=== PATIENT | male | born 1950 | race Hispanic/Latino ===

== ENCOUNTER 2020-01-28 15:42 | Inpatient (IN) | payer MEDICARE, OTHER ==
[~2020-01-28] VITALS: Ht 165.1 cm; Wt 81.6 kg
[2020-01-28] MEDS ORDERED: SODIUM CHLORIDE 0.9% 1000ML 1,000 ML IV STA (15:48)
[2020-01-28] MEDS ORDERED: PANTOPRAZOLE 40 MG 10ML VIAL IV STA (15:48)
[2020-01-28] MEDS ORDERED: SODIUM CHLORIDE 0.9% 1000ML 1,000 ML ONE (15:54)
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
[2020-01-28] MEDS ORDERED: SODIUM CHLORIDE 0.9% 1000ML 1,000 ML IV ONE (16:15)
[2020-01-28 16:20] LABS: BASOPHILS # (AUTO) 0.1 (0.0-0.1); BASOPHILS % 0.6 % (0.0-1.0); EOSINOPHILS # (AUTO) 0.1 (0.0-0.4); EOSINOPHILS % 0.7 % (0.0-6.0); HEMATOCRIT 46.4 % (38.2-49.6); HEMOGLOBIN 15.2 g/dL (14.0-18.0); LYMPHOCYTES # (AUTO) 1.1 (1.0-3.2); LYMPHOCYTES % 12.4 % (18.0-39.1); MEAN CORPUSCULAR HEMOGLOBIN 30.2 pg (28-32); MEAN CORPUSCULAR HGB CONC 32.8 g/dL (31-35); MEAN CORPUSCULAR VOLUME 92.2 fL (81-99); MONOCYTES # (AUTO) 0.7 (0.2-0.8); MONOCYTES % 8.3 % (4.4-11.3); NEUTROPHILS # (AUTO) 6.7 (2.1-6.9); NEUTROPHILS % 77.7 % (38.7-80.0); PLATELET COUNT 205 x10e3/uL (140-360); RED BLOOD COUNT 5.03 x10e6/uL (4.3-5.7)
[2020-01-28 16:23] LABS: INR 0.86; PARTIAL THROMBOPLASTIN TIME 25.8 seconds (23.8-35.5); PROTHROMBIN TIME 12.2 seconds (11.9-14.5)
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
[2020-01-28] MEDS ORDERED: SODIUM CHLORIDE 0.9% 1000ML 1,000 ML IV SCH (16:30)
[2020-01-28 16:32] LABS: ALBUMIN 3.8 g/dL (3.5-5.0); ALBUMIN/GLOBULIN RATIO 1.3 (0.8-2.0); ANION GAP 14.7 mmol/L (8-16); CALCIUM 12.4 mg/dL (8.4-10.2); CREATININE, SERUM 2.3 mg/dL (0.72-1.25); POTASSIUM 4.7 mmol/L (3.5-5.1)
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
[2020-01-28 16:38] LABS: CREATINE KINASE MB 5.9 ng/mL (0-5.0)
[2020-01-28 17:13] LABS: CLARITY,URINE CLOUDY (CLEAR); COLOR,URINE YELLOW (YELLOW); LEUKOCYTE ESTERASE ,URINE 1+ (NEGATIVE)
[2020-01-28 17:14] LABS: KETONES,URINE TRACE (NEGATIVE); NITRITE,URINE NEGATIVE (NEGATIVE); PROTEIN,URINE DIPSTICK 2+ (NEGATIVE); URINE UROBILINOGEN 1 mg/dL (0.2 - 1)
[2020-01-28 17:15] LABS: BACTERIA,URINE MANY /HPF; BILIRUBIN,URINE SMALL (NEGATIVE); MUCUS,URINE MODERATE (RARE); RBC,URINE 0-5 /HPF (0-5); WBC,URINE (MAN) >50 /HPF (0-5)
[2020-01-28 17:16] LABS: CALCIUM OXALATE CRYSTALS,UR FEW (FEW)
[2020-01-28] MEDS ORDERED: MEROPENEM 1GM 100 ML IV ONE (17:34)
[2020-01-28] MEDS ORDERED: ONDANSETRON HCL INJ 2MG/ML 2ML 2 MG/ML VIAL IV PRN (17:45)
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
[2020-01-28] MEDS ORDERED: MEROPENEM 1GM 100 ML IV SCH (18:00)
[2020-01-28] MEDS ORDERED: FINASTERIDE5 MG PO (18:11)
[2020-01-28] MEDS ORDERED: PAROXETINE HCL20 MG PO (18:11)
[2020-01-28] MEDS ORDERED: BENICAR40 MG PO (18:11)
[2020-01-28] MEDS ORDERED: METFORMIN HCL500 MG PO (18:11)
[2020-01-28] MEDS ORDERED: DOXAZOSIN MESYLA8 MG PO (18:11)
[2020-01-28] MEDS ORDERED: DEXTROSE 50% SYRINGE 50 ML IV PRN (18:15)
[2020-01-28] MEDS ORDERED: HYDRALAZINE HCL 20 MG/ML VIAL IV PRN (18:15)
[2020-01-28 19:15] VITALS: BP 111/60
--- NOTE | 2020-01-28 19:15 | NUR ---
patient received awake, alert, lying quietly in bed. no c/o pain noted. ivf infusing without difficulty. admit assessment/history obtained. jamar lujan placed within reach. patient instructed to call for assistance when needed.
[2020-01-28 20:43] VITALS: BP 111/60
[2020-01-28] MEDS: INSULIN LISPRO 100 UNIT/1 ML 3ML VIAL SQ SCH (21:00)
[2020-01-28] MEDS: FAMOTIDINE 20 MG/2 ML VIAL IV SCH (21:00)
[2020-01-28 21:20] VITALS: BP 111/60
[2020-01-28] MEDS: SODIUM CHLORIDE 0.9% 1000ML 1,000 ML IV SCH (22:55)
--- NOTE | 2020-01-28 22:56 | NUR ---
second cardiac markers collected and sent to lab at this time.
[2020-01-28 23:49] LABS: CREATINE KINASE MB 8.5 ng/mL (0-5.0)
[2020-01-29] VITALS (10 sets, daily range): BP systolic 114–169; BP diastolic 58–98
[2020-01-29 06:45] LABS: BASOPHILS # (AUTO) 0.1 (0.0-0.1); EOSINOPHILS # (AUTO) 0.3 (0.0-0.4); EOSINOPHILS % 4.3 % (0.0-6.0); HEMATOCRIT 43.9 % (38.2-49.6); HEMOGLOBIN 14.3 g/dL (14.0-18.0); MEAN CORPUSCULAR HGB CONC 32.6 g/dL (31-35); MONOCYTES # (AUTO) 0.6 (0.2-0.8); MONOCYTES % 9.5 % (4.4-11.3); NEUTROPHILS # (AUTO) 3.3 (2.1-6.9); PLATELET COUNT 161 x10e3/uL (140-360); RED BLOOD COUNT 4.62 x10e6/uL (4.3-5.7); RED CELL DISTRIBUTION WIDTH 13.9 % (11.7-14.4)
[2020-01-29 07:13] LABS: CREATINE KINASE MB 7.5 ng/mL (0-5.0)
[2020-01-29] MEDS: INSULIN LISPRO 100 UNIT/1 ML 3ML VIAL SQ SCH ×4 (07:30→19:42)
[2020-01-29 07:52] LABS: ALANINE AMINOTRANSFERASE 34 IU/L (0-55); ALBUMIN 3.1 g/dL (3.5-5.0); ALBUMIN/GLOBULIN RATIO 1.2 (0.8-2.0); ALKALINE PHOSPHATASE 100 IU/L (40-150); ANION GAP 11.5 mmol/L (8-16); BLOOD UREA NITROGEN 17 mg/dL (7-26); BUN/CREATININE RATIO 18 (6-25); CALCIUM 10.8 mg/dL (8.4-10.2); CARBON DIOXIDE 17 mmol/L (22-29); CHLORIDE 115 mmol/L (98-107); CHOLESTEROL 177 MD/DL (0-199); CREATININE, SERUM 0.94 mg/dL (0.72-1.25); EST GLOMERULAR FILTRATION RATE > 60 ML/MIN (60-); GLUCOSE 106 mg/dL (74-118); HDL CHOLESTEROL 44 MG/DL (40-60); LDL CHOLESTEROL 108 MG/DL (60-130); POTASSIUM 4.5 mmol/L (3.5-5.1); SODIUM 139 mmol/L (136-145); TRIGLYCERIDES 127 MG/DL (0-149)
[2020-01-29] MEDS: CEFTRIAXONE SOD 1 GM/NS 50 ML 50 ML IV SCH (08:44)
[2020-01-29] MEDS: FAMOTIDINE 20 MG/2 ML VIAL IV SCH ×2 (08:44→20:00)
[2020-01-29] MEDS: PAROXETINE HCL 20 MG TAB PO SCH (08:44)
[2020-01-29] MEDS: FINASTERIDE 5 MG TAB PO SCH (08:44)
[2020-01-29] MEDS: SODIUM CHLORIDE 0.9% 1000ML 1,000 ML IV SCH ×2 (08:54→20:00)
[2020-01-29] MEDS ORDERED: DOXAZOSIN MESYLATE PO SCH (09:00)
[2020-01-29] MEDS: DOXAZOSIN MESYLATE 2 MG TAB PO SCH (12:27)
[2020-01-29 15:03] LABS: CREATINE KINASE MB 6.5 ng/mL (0-5.0)
--- NOTE | 2020-01-29 19:40 | NUR ---
Received bedside report from day nurse. Patient in stable condition, no s/s of distress at this time. All safety measures in place. Will continue to monitor.
[2020-01-29] MEDS ORDERED: ONDANSETRON HCL 4 MG ORAL DISINTEGRATING TAB PO PRN (19:45)
--- NOTE | 2020-01-29 20:53 | Consultation ---
DATE OF CONSULTATION: PULMONARY CRITICAL CARE CONSULTATION CHIEF COMPLAINT: Dizziness and unsteady gait. HISTORY OF PRESENT ILLNESS: This patient is a 69-year-old man. He noted some dizziness and unsteadiness of gait. He also had some blurred vision. He denied any chest pain. He denied any nausea or vomiting. He did not have polyuria or diarrhea. When he came to the hospital, he had an elevated creatinine of 2.3 along with a calcium of 12.4 and carbon dioxide of 18. He also had white blood cells in his urine. He received intravenous fluids. He was started on antibiotics. He now feels better. He has some unsteadiness of gait. He had an echocardiogram as well as a carotid duplex and a CT scan of the head. PAST MEDICAL HISTORY: 1. Benign prostatic hypertrophy. 2. Type 2 diabetes. 3. Hypertension. PAST SURGICAL HISTORY: Cholecystectomy. SOCIAL HISTORY: Some history of tobacco use in the past. Occasional alcohol use. FAMILY HISTORY: Noncontributory. ALLERGIES: THE PATIENT IS ALLERGIC TO PENICILLIN. REVIEW OF SYSTEMS: He had unsteady gait and some dizziness. He did not complain of headache or fevers. He had no chest pain. There is no difficulty breathing. He denies any abdominal pain. He had no nausea or vomiting. He does have chronic back pain for which he was being treated by Dr. Oliver. He has no leg edema. PHYSICAL EXAMINATION: VITAL SIGNS: The patient is afebrile. The vital signs are stable. Saturation is 97%. HEENT: No facial swelling or erythema. CARDIAC: Regular rate and rhythm with normal S1 and S2. LUNGS: Auscultation of the lungs reveals clear breath sounds bilaterally. There is no wheezing. ABDOMEN: Soft, nontender. There is no rebound or guarding. EXTREMITIES: No leg edema. NEUROLOGICAL: No focal abnormalities. LABORATORY DATA: Creatinine was 2.3, but is now 0.94. Calcium was 12.4 and is now 10.8. Urinalysis shows greater than 50 white blood cells. RADIOGRAPHIC DATA: CT scan of the head shows no acute disease. Chest x-ray shows no acute abnormalities. IMPRESSION: 1. Acute kidney injury. 2. Dehydration. 3. Hypercalcemia. 4. Urinary tract infection. 5. Benign prostatic hypertrophy. PLAN: 1. Await official results of echocardiogram and carotid duplex. 2. PTH and vitamin D for hypercalcemia are pending. 3. Continue to monitor. 4. Continue antibiotics for urinary tract infection. MD JR Rodriguez/JEROME /[id number]
[2020-01-30] VITALS (7 sets, daily range): BP systolic 115–137; BP diastolic 54–67
[2020-01-30] MEDS: SODIUM CHLORIDE 0.9% 1000ML 1,000 ML IV SCH ×3 (05:06→17:47)
[2020-01-30 06:04] LABS: BASOPHILS % 0.7 % (0.0-1.0); EOSINOPHILS # (AUTO) 0.2 (0.0-0.4); EOSINOPHILS % 4.1 % (0.0-6.0); HEMATOCRIT 43.2 % (38.2-49.6); HEMOGLOBIN 14.8 g/dL (14.0-18.0); LYMPHOCYTES # (AUTO) 1.6 (1.0-3.2); LYMPHOCYTES % 30.4 % (18.0-39.1); MEAN CORPUSCULAR HEMOGLOBIN 32.1 pg (28-32); MEAN CORPUSCULAR HGB CONC 34.3 g/dL (31-35); MEAN CORPUSCULAR VOLUME 93.7 fL (81-99); MONOCYTES # (AUTO) 0.5 (0.2-0.8); MONOCYTES % 9.5 % (4.4-11.3); NEUTROPHILS % 54.9 % (38.7-80.0); PLATELET COUNT 160 x10e3/uL (140-360); RED BLOOD COUNT 4.61 x10e6/uL (4.3-5.7); RED CELL DISTRIBUTION WIDTH 13.6 % (11.7-14.4)
[2020-01-30 06:26] LABS: CALCIUM IONIZED 1.5 mmol/L (1.09-1.30)
[2020-01-30 06:53] LABS: ALANINE AMINOTRANSFERASE 34 IU/L (0-55); ALBUMIN 3.4 g/dL (3.5-5.0); ALBUMIN/GLOBULIN RATIO 1.4 (0.8-2.0); ALKALINE PHOSPHATASE 104 IU/L (40-150); ANION GAP 11.6 mmol/L (8-16); BLOOD UREA NITROGEN 14 mg/dL (7-26); BUN/CREATININE RATIO 18 (6-25); CALCIUM 10.5 mg/dL (8.4-10.2); CARBON DIOXIDE 19 mmol/L (22-29); CHLORIDE 110 mmol/L (98-107); CREATININE, SERUM 0.78 mg/dL (0.72-1.25); EST GLOMERULAR FILTRATION RATE > 60 ML/MIN (60-); GLUCOSE 104 mg/dL (74-118); POTASSIUM 4.6 mmol/L (3.5-5.1); SODIUM 136 mmol/L (136-145)
--- NOTE | 2020-01-30 06:55 | NUR ---
Received patient lying in bed with eyes open. Respiration even and unlabored without SOB. Call light in reach.
[2020-01-30] MEDS: INSULIN LISPRO 100 UNIT/1 ML 3ML VIAL SQ SCH ×4 (07:30→21:00)
[2020-01-30] MEDS: CEFTRIAXONE SOD 1 GM/NS 50 ML 50 ML IV SCH (08:11)
[2020-01-30] MEDS: FAMOTIDINE 20 MG/2 ML VIAL IV SCH ×2 (08:11→21:40)
[2020-01-30] MEDS: PAROXETINE HCL 20 MG TAB PO SCH (08:11)
[2020-01-30] MEDS: FINASTERIDE 5 MG TAB PO SCH (08:12)
[2020-01-30] MEDS: DOXAZOSIN MESYLATE 2 MG TAB PO SCH (08:16)
[2020-01-30] MEDS ORDERED: CEFDINIR300 MG PO (09:29)
[2020-01-30] MEDS ORDERED: LIPITOR20 MG PO (09:38)
--- NOTE | 2020-01-30 10:16 | NUR ---
OBS DAY 2. SENT TO R1 FOR LOC DETERMINATION
[2020-01-30] MEDS ORDERED: IOPAMIDOL 370 MG/ML 200 ML INFUS..BTL INJ ONE (10:33)
[2020-01-30] MEDS ORDERED: SODIUM CHLORIDE 0.9% 100 ML ONE (10:33)
--- NOTE | 2020-01-30 12:19 | Diagnostic Imaging Report ---
CTA NECK, CTA BRAIN HISTORY: Carotid stenosis COMPARISON: Head CT 01/28/2020 TECHNIQUE: CTA of the head and neck was performed with intravenous iodine based contrast. Coronal, sagittal, 3-D, and oblique maximum intensity projection reformations were created. One or more of the following dose reduction techniques were used: Automated exposure control, adjustment of the mA and/or kV according to patient size, and/or utilization of iterative reconstruction technique. DISCUSSION: If present, any cervical carotid stenosis will be measured as a percentage relative to the resighini artery distal to the stenosis (NASCET). CERVICAL CTA: Right Carotid: Moderate calcified plaque at the right carotid bulb causes greater than 70% focal stenosis of the proximal right internal carotid artery. Left Carotid: Mild calcified plaque at the left carotid bulb does not cause significant stenosis. Right vertebral artery: The right vertebral artery is occluded from its origin to the upper V2 segment. Underlying mild calcified plaques are seen in the occluded right vertebral artery V2 segment. There is reconstitution of the upper V2 segment at the C3 level. Moderate focal stenosis of the reconstituted upper V2 segment is due to additional focal calcified plaque. Left vertebral artery: Patent, no abnormalities. INTRACRANIAL CTA: Carotid arteries: Mild bilateral carotid siphon calcified plaque is present. Absent right A1 segment is within normal variation. No abnormalities in the left A1 or bilateral M1 segments. Vertebrobasilar Circulation: Right vertebral artery: Patent, no abnormalities. Left vertebral artery: Patent, no abnormalities. Basilar artery: Patent, no abnormalities. Posterior cerebral arteries: Patent, no abnormalities. Normal Variants: ACom: Patent. PComs: Patent bilaterally with hypoplastic right P1 segment. Vertebral arteries: Right dominant. The left vertebral artery terminates as the left posterior inferior cerebellar artery. Additional findings: There are mild to moderate degenerative changes throughout the spine. IMPRESSION: 1. 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 The right vertebral artery is reconstituted at the C3 level. Please note that the right vertebral artery is dominant. 2. Moderate focal stenosis in the reconstituted right vertebral artery upper V2 segment due to calcified plaque. 3. Greater than 70% focal stenosis in the proximal cervical right internal carotid artery due to calcified plaque. 4. Mild calcified plaque at the left carotid bulb does not cause significant stenosis. 5. Mild bilateral carotid siphon calcified plaque without significant stenosis. 6. No other cervical or intracranial CTA abnormalities. Signed by: Dr. Ed Hogue M.D. on 01/30/2020 12:15 PM
--- NOTE | 2020-01-30 13:21 | NUR ---
Discontinuing PT services since patient is Mod I in functional mobility. Thank you. Addendum: 01/30/20 at 1322 by Thang jung PT Amended: Links added.
--- NOTE | 2020-01-30 13:30 | NUR ---
spoke with Dr. Mckinney regarding the consultation. States he is going to see the patient.
--- NOTE | 2020-01-30 13:33 | NUR ---
Spoke with Dr. Couch regarding the consultation.
[2020-01-30] MEDS: ACETAMINOPHEN 325 MG TAB PO PRN (13:50)
[2020-01-30] MEDS ORDERED: FUROSEMIDE INJ 10 MG/ML 2 ML VIAL IV ONE (15:45)
--- NOTE | 2020-01-30 17:02 | Consultation ---
DATE OF CONSULTATION: Endocrine Consultation Patient of Dr. Smith and Dr. Mohan Oliver. Thank you very much for referring this patient. HISTORY OF PRESENT ILLNESS: This is a 69-year-old gentleman, who was referred to me for evaluation of hypercalcemia. The patient tells me that he has hypercalcemia for some time for almost a year or so, and is being followed by Dr. Mohan Oliver. He was given Sensipar, but he could not afford it. The reason for the hypercalcemia is not very clear. The patient came to the hospital with history of dizziness. He was found to have carotid stenosis. PAST MEDICAL HISTORY: Other medical problems include history of longstanding hypertension, hyperlipidemia, and diabetes mellitus. During the hospital stay. At the time of admission, his calcium levels were elevated at 12.4 with an ionized calcium around 1.5. His PTH level is around 35. The patient does not have a history of any kidney stones or any history of cancer. PHYSICAL EXAMINATION: GENERAL: Today, the patient is alert, awake, little bit apprehensive. He is moderately overweight. His heart rate is around 78, blood pressure 130/80 mmHg. HEENT: Essentially unremarkable. Thyroid is palpable. Clinically, he is near euthyroid. CHEST: Bilateral vesicular breathing. He has mild bronchospasm. CARDIAC: First and second heart sound. There is no 3rd or 4th heart sound. Ejection systolic murmur grade 2/6. ABDOMEN: The patient has evidence of a slightly distended abdomen. 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 CLINICAL IMPRESSION: Hypercalcemia, rule out cancer related hypercalcemia. Dizziness, carotid stenosis, urinary tract infection, diabetes mellitus type 2 with complications. PLAN: At this time, is to continue the IV normal saline and give him IV Lasix along with that. Time is upon we might consider Aredia if his creatinine levels stay okay. We will also do a PTH peptide and Alhaji angiotensin-converting enzyme. Thanks for referring this patient. I will be following this patient with you. MD LOUISE Hayes/JEROME /[id number]
[2020-01-31] VITALS (8 sets, daily range): BP systolic 122–170; BP diastolic 60–87
[2020-01-31] MEDS: SODIUM CHLORIDE 0.9% 1000ML 1,000 ML IV SCH ×2 (04:06→17:05)
--- NOTE | 2020-01-31 06:56 | NUR ---
Received bedside shift report from off going nurse. Patient is resting in bed, no s/s of distress noted at this time. Call light within reach. Bed in the lowest position.
[2020-01-31] MEDS: INSULIN LISPRO 100 UNIT/1 ML 3ML VIAL SQ SCH ×4 (07:30→21:00)
[2020-01-31] MEDS: FAMOTIDINE 20 MG/2 ML VIAL IV SCH ×2 (08:27→21:15)
[2020-01-31] MEDS: CEFTRIAXONE SOD 1 GM/NS 50 ML 50 ML IV SCH (08:27)
[2020-01-31] MEDS: FINASTERIDE 5 MG TAB PO SCH (08:28)
[2020-01-31] MEDS: DOXAZOSIN MESYLATE 2 MG TAB PO SCH (08:28)
[2020-01-31] MEDS: PAROXETINE HCL 20 MG TAB PO SCH (08:28)
[2020-01-31] MEDS ORDERED: FUROSEMIDE INJ 10 MG/ML 2 ML VIAL IV ONE (09:00)
--- NOTE | 2020-01-31 12:51 | Diagnostic Imaging Report ---
Examination: MRI BRAIN WO CONTRAST History: Dizziness. Dehydration. Strokelike symptoms. Comparison studies: Head CT performed January 28, 2020 Technique: Sagittal T2; axial DWI, FLAIR, GRE or SWI, T1, Coronal FLAIR. Intravenous contrast: None Findings: Scalp: No abnormal signal. No masses. Bone marrow: Normal in signal intensity. Brain volume: Adequate for age. No volume loss. Ventricles: Normal in size and configuration. No hydrocephalus. Extra-axial spaces: No abnormalities. Parenchyma: There are patchy and punctate areas of T2/FLAIR hyperintensity in the periventricular and subcortical white matter, nonspecific. No masses, hemorrhage, or acute vascular insults. Suprasellar and sellar region: No abnormalities. Craniocervical junction: No abnormalities. The foramen magnum is patent. No Chiari malformations. Vessels: Normal flow-voids in the arteries and sinuses. Additional findings:None. IMPRESSION: No acute intracranial abnormalities, specifically, no acute infarct. Chronic microvascular ischemic change. Signed by: Dr. Rosaline Galvan M.D. on 01/31/2020 12:48 PM
[2020-01-31] MEDS ORDERED: PAMIDRONATE DISODIUM 30 MG/VIAL IV ONE (13:45)
[2020-01-31] MEDS ORDERED: PAMIDRONATE DISODIUM 30 MG in SODIUM CHLORIDE 0.9% 500ML 500 ML IV ONE (15:00)
--- NOTE | 2020-01-31 19:18 | NUR ---
BEDSIDE SHIFT REPORT GIVEN TO ONCOMING NURSE. PATIENT IS RESTING IN BED, NO ACUTE DISTRESS NOTED. CALL LIGHT WITHIN REACH. BED IN THE LOWEST POSITION.
--- NOTE | 2020-01-31 20:27 | Consultation ---
DATE OF CONSULTATION: 01/31/2020 REASON FOR CONSULTATION: Carotid stenosis; requested by Dr. Russ Smith. CHIEF COMPLAINT: Dizziness. HISTORY OF PRESENT ILLNESS: I saw and evaluated this patient on January 31, 2020. He is a 69-year-old man, who was admitted with dizziness and unsteady gait. He has also had some episodes of blurred vision. On admission, his creatinine was elevated at 2.3 along with a calcium of 12.4 and carbon dioxide of 18. He has been followed by Dr. Mohan Oliver and prescribed the Sensipar. However, he could not afford the Sensipar and apparently has not been followed since then. The etiology of hypercalcemia was not very clear. On admission, the patient was dizzy. He said that he has had several episodes while mowing his lawn, where he became lightheaded. He did not have moody syncope. No unsteady gait and no history of TIA with extremity weakness or classic amaurosis fugax. However, he does describe lightheadedness, double vision, and scotoma, which resolved after he rests. He denies any history of coronary artery disease. No history of chest pain. Evaluations included a carotid ultrasound performed on 01/27, that is consistent with a right carotid stenosis of approximately 70%. Echocardiogram showed LVEF 50% to 60% with no evidence of valvular abnormality. LVEDD was 4.6 cm. There was RV enlargement and mild MR and TR. An MRI of the brain performed on 01/28/2020, did not show any intracranial abnormalities and no infarct. CTA of the neck and brain performed on 01/30/2020, was also read as showing a greater than 70% focal stenosis of the proximal right internal carotid artery. There was mild calcified plaque at the left carotid bulb. The right vertebral artery was occluded at its origin to the upper V2 segment. The left vertebral artery was patent without any abnormalities. The intracranial cerebral artery showed a mild bilateral carotid siphon plaque, but no other abnormalities. The right vertebral artery reconstitutes at the C3 level. The patient is currently being treated for the hypercalcemia with intravenous saline and Lasix by Dr. Couch of Endocrinology. PAST MEDICAL HISTORY: Positive for BPH, type 2 diabetes, and hypertension. PAST SURGICAL HISTORY: Positive for cholecystectomy. SOCIAL HISTORY: The patient is a long-time smoker and continues to smoke. He drinks alcohol occasionally. He is retired and lives at home. FAMILY HISTORY: Negative for early coronary artery disease or stroke history. ALLERGIES: PENICILLIN. MEDICATIONS: See MAR. REVIEW OF SYSTEMS: GENERAL: Positive for fatigue. NEUROLOGIC: Positive as above with unsteady gait and some dizziness. CARDIAC: Negative for chest pain or palpitations. PULMONARY: Negative for shortness of breath or wheezing. GI: No constipation or diarrhea. : Negative for hematuria or dysuria. ENDOCRINE: Positive as above with hypercalcemia. HEMATOLOGIC: Negative for clotting or bleeding. INFECTIOUS: Negative for fevers or sweating. PSYCHIATRIC: Negative for depression or anxiety. MUSCULOSKELETAL: Positive for joint pain. PHYSICAL EXAMINATION: GENERAL: Well-developed, well-nourished male, sitting up in bed. VITAL SIGNS: Blood pressure 130/70, pulse 80 and regular, respirations 16 and unlabored. NECK: Supple and nontender. No JVD. CARDIAC: Shows a regular rate and rhythm. Normal S1 and S2. There is no S3, S4, rub, or murmur. LUNGS: Clear to auscultation and percussion bilaterally. ABDOMEN: Globally benign. Good bowel sounds. No hepatosplenomegaly. BACK: No CVA tenderness. No muscle spasm. EXTREMITIES: No cyanosis, clubbing, or edema. VASCULAR: Carotids 2+/2+ bilaterally. I could not hear any carotid bruits. Radials and femorals 2+/2+ bilaterally. SKIN: No rashes or nonhealing ulcers. MUSCULOSKELETAL: Full range of motion at all joints. No joint swelling. NEUROLOGIC: Cranial nerves 2 through 12 intact. Sensation intact to light touch and pinprick bilaterally. IMAGING: As above. LABORATORIES: White count 5.39, hemoglobin 14.8, hematocrit 42.2, and platelet count 160,000. INR 0.86 with PT 12.2 and PTT 25.8. Chemistry; creatinine reportedly 2.3 on admission but is now 0.9. For some reason, chemistries on the computer are incomplete. The right carotid stenosis of 70% is imaged both by ultrasound and CTA of the neck. There is also a right vertebral occlusion. The left vertebral and left carotid system do not have significant lesions. IMPRESSION: Right carotid stenosis and the patient is being treated for hypercalcemia. We will discuss treatment options with his other physicians. Right carotid endarterectomy will be a reasonable option once his other medical problems are resolved. Thank you very much for asking me to see this nice man. MD LASHAY Soto/JEROME /[id number]
[2020-01-31] MEDS: ACETAMINOPHEN 325 MG TAB PO PRN (21:19)
--- NOTE | 2020-01-31 21:52 | Consultation ---
DATE OF CONSULTATION: 01/30/2020 HISTORY OF PRESENT ILLNESS: A 69-year-old male admitted with dizziness and kidney problems and hypercalcemia. The patient had a carotid Doppler, which showed some stenosis. He had a CTA of the neck and head, which shows occlusion of the right cervical vertebral artery with reconstitution more distally and 70% stenosis in the right carotid artery. The patient reports that his dizziness has resolved now. Consultation for stenosis evaluation, cardiovascular consultation has been placed. The patient is followed up also by Endocrinology for hypercalcemia and Pulmonary Service. At this time, the patient complains only of back pain and neck pain. No other symptoms. Neurologically, no weakness, no double vision, and no lateralized symptoms. PAST MEDICAL HISTORY: BPH, diabetes, hypertension. PAST SURGICAL HISTORY: Cholecystectomy. SOCIAL HISTORY: Old history of tobacco abuse. Occasional alcohol use. FAMILY HISTORY: Noncontributory. ALLERGIES: THE PATIENT IS ALLERGIC TO PENICILLIN. REVIEW OF SYSTEMS: His dizziness and gait problems resolved. No fever. No headache. No chest pain. No abdominal pain. Has chronic back pain. He has no nausea, no vomiting, and no edema. The rest of the 14-point review of systems is unremarkable. PHYSICAL EXAMINATION: VITAL SIGNS: Temperature 98, respiratory rate 16, pulse rate 80, blood pressure 121/67. HEAD AND NECK: No meningeal signs. ABDOMEN: Soft. CARDIOVASCULAR: Extremities, fair pulses. LUNGS: Good air entry bilaterally. No rales. EXTREMITIES: No edema. NEUROLOGIC: The patient is alert, oriented, follows commands. Normal speech. Cognitively normal. Motor, no lateralized weakness noted. No arm drift. Gait is normal except for difficulty with Romberg. He has decreased vibration, proprioception, pinprick distally. Deep tendon reflexes are 1. Plantars are flexor. Ersfns-[id number], [id number]-ui-[id number] are normal. ASSESSMENT: The patient with right vertebral occlusion and right carotid stenosis. Gross changes are chronic. His exam is unremarkable and it is not likely that he has an acute intracranial process. We will get an MRI of the brain to evaluate for potentially previous stroke, which would switch his current stenosis from asymptomatic to symptomatic if it is positive, which would probably affect the plan of care for the stenosis. At this point, we will await MRI results and make further decisions regarding the right carotid stenosis as well as the right vertebral, probably it is not surgical and it seems that he has reconstitution more distally. We will have to maintain him on antiplatelets, at this point would be aspirin and high-dose statins, Lipitor 80 mg daily unless his MRI shows any acute intracranial stroke. We will keep him on neuro checks. Physical, occupational, and speech therapy will be ordered. We will work him up for cardiovascular risk factors under control. Keep LDL less than 70 and his blood pressure has to be kept in the upper normal range, blood sugar in normal range. Treatment of his hypercalcemia and other medical issues and kidney problems per the other services. Jose Daniel Mckinney MD AM/JEROME /[id number]
[2020-02-01] VITALS (9 sets, daily range): BP systolic 125–154; BP diastolic 61–82
[2020-02-01] MEDS: SODIUM CHLORIDE 0.9% 1000ML 1,000 ML IV SCH ×2 (03:29→12:12)
[2020-02-01 06:12] LABS: BASOPHILS % 0.8 % (0.0-1.0); EOSINOPHILS # (AUTO) 0.2 (0.0-0.4); EOSINOPHILS % 4.5 % (0.0-6.0); HEMOGLOBIN 14.5 g/dL (14.0-18.0); LYMPHOCYTES # (AUTO) 1.2 (1.0-3.2); LYMPHOCYTES % 25.4 % (18.0-39.1); MEAN CORPUSCULAR HEMOGLOBIN 31.3 pg (28-32); MEAN CORPUSCULAR VOLUME 94.8 fL (81-99); MONOCYTES # (AUTO) 0.4 (0.2-0.8); MONOCYTES % 8.4 % (4.4-11.3); NEUTROPHILS % 60.5 % (38.7-80.0); PLATELET COUNT 175 x10e3/uL (140-360); RED BLOOD COUNT 4.64 x10e6/uL (4.3-5.7); RED CELL DISTRIBUTION WIDTH 13.4 % (11.7-14.4)
[2020-02-01 06:34] LABS: ANION GAP 8.2 mmol/L (8-16); BLOOD UREA NITROGEN 17 mg/dL (7-26); BUN/CREATININE RATIO 21 (6-25); CALCIUM 10.9 mg/dL (8.4-10.2); CARBON DIOXIDE 21 mmol/L (22-29); CHLORIDE 112 mmol/L (98-107); CREATININE, SERUM 0.81 mg/dL (0.72-1.25); EST GLOMERULAR FILTRATION RATE > 60 ML/MIN (60-); GLUCOSE 109 mg/dL (74-118); MAGNESIUM 1.5 MG/DL (1.3-2.1); PHOSPHORUS 2.2 MG/DL (2.3-4.7); POTASSIUM 4.2 mmol/L (3.5-5.1); SODIUM 137 mmol/L (136-145)
[2020-02-01] MEDS: INSULIN LISPRO 100 UNIT/1 ML 3ML VIAL SQ SCH ×4 (07:30→21:00)
[2020-02-01] MEDS: FAMOTIDINE 20 MG/2 ML VIAL IV SCH ×2 (09:00→21:25)
[2020-02-01] MEDS: CEFTRIAXONE SOD 1 GM/NS 50 ML 50 ML IV SCH (09:00)
[2020-02-01] MEDS ORDERED: FUROSEMIDE INJ 10 MG/ML 2 ML VIAL IV ONE (09:00)
[2020-02-01] MEDS: DOXAZOSIN MESYLATE 2 MG TAB PO SCH (09:01)
[2020-02-01] MEDS: FINASTERIDE 5 MG TAB PO SCH (09:01)
[2020-02-01] MEDS: PAROXETINE HCL 20 MG TAB PO SCH (09:01)
[2020-02-01] MEDS ORDERED: MAGNESIUM SULFATE 2GM/50ML 50 ML IV ONE (09:45)
[2020-02-01] MEDS: ACETAMINOPHEN 325 MG TAB PO PRN (10:47)
[2020-02-01] MEDS ORDERED: ACETAMINOPHEN/CODEINE 300MG - 30MG TAB PO PRN (15:15)
[2020-02-01] MEDS ORDERED: TRAMADOL HCL 50 MG TAB PO PRN (15:15)
[2020-02-01] MEDS ORDERED: HYDROCODONE/APAP 7.5MG-325MG 1 EA TAB PO PRN (15:15)
--- NOTE | 2020-02-01 15:26 | Progress Note ---
DATE: 02/01/2020 REASON FOR EVALUATION: Right carotid stenosis. REFERRING PHYSICIAN: Ash Smith MD SUBJECTIVE: A 69-year-old man with right carotid stenosis being treated for hypercalcemia. Evaluation by Neurology underway. MRI of the brain has been recommended. REVIEW OF SYSTEMS: GENERAL: Negative for fatigue. CARDIAC: Negative for chest pain. NEUROLOGIC: Negative for repeat episodes of dizziness. GI: Negative for GI distress and diarrhea. PULMONARY: Negative shortness of breath. PHYSICAL EXAMINATION: GENERAL: Well-developed, well-nourished man sitting up in bed. VITAL SIGNS: Blood pressure 130/75. Pulse 80 and regular, respirations 16 and unlabored. NECK: Supple, nontender. No JVD. CARDIAC: Regular rate and rhythm. Normal S1, S2. No S3, S4, rub, or murmurs. LUNGS: Clear to auscultation and percussion bilaterally. ABDOMEN: Globoid and benign. Good bowel sounds. LABORATORIES: White count 4.8, hemoglobin 14.8, hematocrit 44.0, platelet count 175,000. Sodium 137, potassium 4.2, BUN 17, creatinine 0.8. IMPRESSION: 70% right carotid stenosis. Undergoing treatment for hypercalcemia. Decision about right carotid surgery pending MRI. MD FRANCISCO JAVIER SotoL/MODL /[id number]
--- NOTE | 2020-02-01 18:55 | NUR ---
Bedside nursing shift report with morning nurse. Pt alert and orient, lying in bed HOB 30 degrees. Denies pain at this time. Call light within reach. Bed low and locked.
--- NOTE | 2020-02-01 19:29 | NUR ---
Report given to oncoming nurse of patient's status. Resting in bed. No s/s of acute distress noted. Side rails upx2, call light within reach.
--- NOTE | 2020-02-01 19:47 | Consultation ---
DATE OF CONSULTATION: 01/31/2020 HISTORY OF PRESENT ILLNESS: The patient with no dizziness, no lateralized weakness, no focal neurologic deficits. He complains of back pain. MRI brain does not show any acute changes. The patient is being evaluated by Vascular surgery and elective right CEA for asymptomatic stenosis is anticipated if clinically stable. MEDICATIONS: Per medication list. The patient was started on Lipitor as well as Plavix. REVIEW OF SYSTEMS: As above. PHYSICAL EXAMINATION: VITAL SIGNS: The patient's temperature is 98, respiratory rate 16, pulse rate 80, blood pressure 121/60. HEAD AND NECK: No meningeal signs. LUNGS: Fair air entry. ABDOMEN: Soft. NEUROLOGIC: Alert, follows commands. Normal language fund of knowledge. Sensation normal. Facial exam, uvula midline. Gag postive. Tongue midline. Shoulder shrug is normal. Motor is 5/5 in all extremities. Yxygfo-nx-wrkf exam is normal. Sensory normal to all modalities. Deep tendon reflexes are 2. Plantars are flexor. ASSESSMENT: 1. Asymptomatic right carotid stenosis at 70%. 2. Chronic occlusion of the right vertebral artery with reconstitution more distally. 3. Hypertension. 4. Hyperlipidemia. 5. Hypercalcemia. RECOMMENDATIONS: The patient will probably benefit from a right CEA on an elective basis. In the mean time we will keep him on antiplatelets as well as statins. Control cardiovascular risk factors. The right vertebral findings are nonsurgical. His dizziness is resolved at this time. His right CEA is to be scheduled and the finding would be determined based on his other medical issues. Jose Daniel Mckinney MD AM/JEROME /[id number]
--- NOTE | 2020-02-01 19:55 | NUR ---
Spoke with Dr. Bolton regrading plans for patient, stated he will come by tomorrow to talk to patient about elective surgery.
[2020-02-01] MEDS ORDERED: ATORVASTATIN 40 MG TAB PO SCH (21:00)
[2020-02-02] VITALS: BP 146/71
[2020-02-02] MEDS: ACETAMINOPHEN 325 MG TAB PO PRN ×2 (00:33→14:30)
[2020-02-02] MEDS: SODIUM CHLORIDE 0.9% 1000ML 1,000 ML IV SCH ×3 (00:33→16:25)
[2020-02-02 04:00] VITALS: BP 126/63
--- NOTE | 2020-02-02 06:50 | NUR ---
Report given to morning nurse, Pt resting in bed. No s/s of acute distress noted. Call light within reach.
[2020-02-02] MEDS: INSULIN LISPRO 100 UNIT/1 ML 3ML VIAL SQ SCH ×3 (07:30→16:24)
[2020-02-02 07:37] VITALS: BP 119/57
[2020-02-02 07:38] VITALS: BP 119/57
[2020-02-02] MEDS ORDERED: CLOPIDOGREL BISULFATE 75 MG TAB PO SCH (09:00)
[2020-02-02] MEDS: PAROXETINE HCL 20 MG TAB PO SCH (11:00)
[2020-02-02] MEDS: DOXAZOSIN MESYLATE 2 MG TAB PO SCH (11:00)
[2020-02-02] MEDS: FAMOTIDINE 20 MG/2 ML VIAL IV SCH (11:00)
[2020-02-02] MEDS: FINASTERIDE 5 MG TAB PO SCH (11:00)
[2020-02-02] MEDS: CEFTRIAXONE SOD 1 GM/NS 50 ML 50 ML IV SCH (11:00)
[2020-02-02 11:29] VITALS: BP 155/92
[2020-02-02 15:25] VITALS: BP 143/56
[2020-02-02] MEDS ORDERED: FUROSEMIDE INJ 10 MG/ML 2 ML VIAL IV ONE (16:15)
--- NOTE | 2020-02-02 18:06 | Progress Note ---
DATE: 02/01/2020 SUBJECTIVE: The patient is same, no dizziness, no other neurologic symptoms. MEDICATIONS: Per list. He is now on Plavix and Lipitor among other medications. PHYSICAL EXAMINATION: Essentially unchanged with no lateralizing weakness or symptoms. ASSESSMENT: 1. Asymptomatic right carotid stenosis at 70%. 2. Chronic right vertebral artery occlusion. 3. Hypertension. 4. Hyperlipidemia. 5. Hypercalcemia. RECOMMENDATIONS: Elective right CEA to be scheduled I think after medical issues resolution including hypercalcemia. We will continue in the meantime with antiplatelets and statins. Jose Daniel Mckinney MD AM/MODZeny /[id number]
--- NOTE | 2020-02-02 19:00 | NUR ---
Bedside nursing shift report completed with morning nurse. Pt alert and oriented to name. Doctors at bedside. Pt denies pain at this time. Call light within reach. Call light within reach. Bed low and locked.
[2020-02-02] MEDS ORDERED: CEFUROXIME250 MG PO (19:35)
--- NOTE | 2020-02-02 20:30 | NUR ---
Pt D/C'd via WC to private car, at his side. D?C'd instructions given, patient verbalized understanding. No acute distress noted. IV removed 18g right AC, patient tolerated well. Patient left with all belonging. No additional questions noted.
--- NOTE | 2020-02-03 01:38 | Progress Note ---
DATE: 02/02/2020 REASON FOR PROGRESS NOTE: Right carotid stenosis; referred by Dr. Russ Smith. SUBJECTIVE: The patient is sitting up in bed and feeling well. Hypercalcemia is now controlled. Plan is for discharge today. REVIEW OF SYSTEMS: GENERAL: Negative for fatigue. CARDIAC: Negative for chest pain. PULMONARY: Negative for shortness of breath. GI: No constipation or diarrhea. : Negative for hematuria or dysuria. NEUROLOGIC: Negative for focal weakness in the extremities. PHYSICAL EXAMINATION: GENERAL: The patient is sitting up in bed and feeling well. VITAL SIGNS: Blood pressure 130/70, pulse 75 and regular, respirations 16 and unlabored. NECK: Supple and nontender. No JVD. CARDIAC: Shows a regular rate and rhythm. Normal S1, S2. No S3 or S4. LUNGS: Clear to auscultation and percussion bilaterally. ABDOMEN: Globoid and benign. Good bowel sounds. EXTREMITIES: No cyanosis, clubbing, or edema. LABORATORY: Unable to see calcium levels on the EMR today. White count 4.8, hemoglobin 14.5, hematocrit 44.0, platelet count 175,000. IMPRESSION AND PLAN: Right carotid stenosis. Neurology has recommended elective right carotid endarterectomy. I have discussed the hypercalcemia with Dr. Couch. He feels that calcium is officially controlled for right carotid and a short for elective right carotid endarterectomy. I described the operation to the patient as well as to his son. We called the son by phone and he was on the speaker phone. I described the operation to the patient and son. I told them both that the risks of surgery include , bleeding, infection, heart attack, stroke, pneumonia, prolonged ICU stay, mechanical ventilation, tracheostomy, renal failure, etc. I told them that without surgery, the risk of a stroke with a 70-80% stenosis of the right carotid as well as an occluded right vertebral would likely be on the order of 3-4% per year and that this might be a major or lethal stroke. I told them that with surgery, the risk of stroke would fall to approximately 1/2 to 1% per year, but that this might also be a major or lethal stroke. I told them that the perioperative risk of a major or lethal stroke would be on the order of 3-4%. I further told them that the operation would not initially be expected to improve neurologic status and that the only reason to proceed with surgery was to lessen the risk of stroke over the long-term. The patient and his son stated that they understood, no further question, and wanted to proceed. Surgery will be scheduled. MD LASHAY Soto/MODL /[id number]
--- NOTE | 2020-02-03 04:13 | Discharge Summary ---
PRIMARY CARE PHYSICIAN: Dr. Mohan Oliver. CONSULTING PHYSICIANS: Include Jose Daniel Mckinney MD; Jose A Alvarado MD; Jacob Couch MD CHIEF COMPLAINT: Dehydration, dizziness. HISTORY OF PRESENT ILLNESS: The patient is a 69-year-old male, who admitted with complaints of dizziness round 10 a.m. on date of admission. He was working when this happened. He got blurry vision. He said this happened one month ago and then he passed out. He denied any associated nausea, vomiting, syncope, or weakness. PAST MEDICAL HISTORY: Hypertension, type 2 diabetes mellitus, BPH, depression, hyperlipidemia. PAST SURGICAL HISTORY: Cholecystectomy. FAMILY HISTORY: Noncontributory. SOCIAL HISTORY: Occasional alcohol and occasional tobacco use. ALLERGIES: PENICILLIN. ADMITTING DIAGNOSES: 1. Urinary tract infection, present on admission. 2. Acute kidney injury versus chronic kidney disease. 3. Hypertension. 4. Hyperlipidemia. 5. Type 2 diabetes mellitus. 6. Hypercalcemia. 7. Obesity. 8. Dizziness. DISCHARGE DIAGNOSES: 1. Escherichia coli urinary tract infection, present on admission. 2. Right internal carotid artery stenosis and dizziness. 3. Controlled hypertension. 4. Acute hypercalcemia. 5. Controlled type 2 diabetes mellitus. 6. Acute hypomagnesemia. On admission WBC 8.65, hemoglobin 15.2, hematocrit 46.4, platelets 205. Sodium 139, potassium 4.7, chloride 111, CO2 of 18, BUN 23, creatinine 2.3, estimated GFR 28, glucose 130, lactic acid 1.4, calcium 12.4, magnesium 2.0, total bilirubin 0.9, AST 28, ALT 42, alkaline phosphatase 126, creatine kinase 141, CK-MB 5.9, troponin I 0.097. B-type natriuretic peptide 55, total protein 6.7, albumin 3.8. Hemoglobin A1c was 6.2%. Ionized calcium on 01/29 was 1.5. Followup CK-MB was 8.5 and 7.5. Creatine kinase and troponin I remain within normal limits. Urinalysis was positive. De Jesus virus on 01/27 by PCR was not detected. 01/27, blood cultures x2 showed no growth after five days, which is a final report, and on 01/27, urine culture and sensitivity showed Escherichia coli, which was nearly pansensitive, but resistant to Levaquin. Brain CT showed no acute intracranial abnormalities. It did show mild supratentorial chronic microvascular ischemic change, mild generalized cerebral volume loss. CT angio of the head and neck showed age indeterminate occlusion of the right vertebral artery from the origin of the upper V2 segment of the right vertebral artery reconstituted at the C3 level, moderate focal stenosis in the reconstituted right vertebral artery upper V2 segment due to calcified plaque, greater than 70% focal stenosis in the proximal cervical right internal carotid artery due to calcified plaque, mild calcified plaque at the left carotid bulb, which was not causing significant stenosis, mild bilateral carotid siphon calcified plaque without significant stenosis. No other cervical or intracranial CT angio abnormalities. MRI of the brain done on 01/30 showed no acute intracranial abnormalities, specifically no acute infarct. There is chronic microvascular ischemic change. Per the neurologist's notes, physical examination was unchanged with no lateralizing weakness or symptoms. Elective right carotid endarterectomy (CEA) to be scheduled. The patient received IV Rocephin during his stay for the Escherichia coli UTI. The patient's dizziness resolved. Cardura and Lasix were used for hypertension. Lasix, and IV fluids along with IV Aredia were utilized for the hypercalcemia. Magnesium sulfate IV was used for hypomagnesemia. Today's ionized calcium was 1.5. Upon discharge, his WBCs 4.88, hemoglobin 14.5, hematocrit 44, platelets 175, BUN 17, creatinine 0.81, calcium 10.9, phosphorus 2.2, magnesium 1.5. On 01/31, ionized calcium 1.5 throughout the stay. The patient is to follow up with Dr. Couch for hypercalcemia within a week. The patient may have carotid endarterectomy on the right side next week if the hypercalcemia does not interfere with that. The patient to follow up with his PCP, Dr. Kirill Oliver in 1-2 weeks, Dr. Alvarado's office is to call the patient to set up an appointment. Continue ADA diet. Plavix will be held for now given anticipated surgery next week. Activity level as tolerated. Prescriptions for Lipitor 40 mg p.o. every night at bedtime, and cefuroxime 500 mg p.o. q.12 hours will be provided. Cefuroxime is for 10 days. PHYSICAL EXAMINATION: GENERAL: No change in physical examination. VITAL SIGNS: Temperature 98.6, heart rate 70, blood pressure 119/57, respirations 19, oxygen saturation 99%. Dictated by Galen Betancur, [employer] MD GISSELLE De La Torre/JEROME /[id number]
--- NOTE | 2020-02-04 02:13 | Progress Note ---
DATE: 02/02/2020 The patient is same. Normal changes. No neurologic deficits. His neurologic examination is unremarkable. Afebrile. Vitals signs stable. ASSESSMENT: Carotid stenosis, for CEA on an elective basis after becoming medically stabilized. The patient will follow up with Vascular Surgery. He will continue with antiplatelet therapy and statins for now. Driving precautions discussed. Jose Daniel Mckinney MD AM/MODL /[id number]
== END 2020-02-02 20:30 | disposition home or self-care (01) | DRG 68 ==
LOC: ER 15:42 → ERHOLD 17:39 → MED/SURG3 18:50 → OBSVTOIN 01-30 12:42
PROVIDERS: ADMIT Internal Medicine; ATTEND Internal Medicine
DX: I65.23 Occlusion and stenosis of bilateral carotid arteries (principal); N39.0 Urinary tract infection, site not specified; N17.9 Acute kidney failure, unspecified; E83.52 Hypercalcemia; E86.0 Dehydration; B96.20 Unspecified Escherichia coli [E. coli] as the cause of diseases classified elsewhere; N40.0 Benign prostatic hyperplasia without lower urinary tract symptoms; F32.9 Major depressive disorder, single episode, unspecified; E78.5 Hyperlipidemia, unspecified; I65.01 Occlusion and stenosis of right vertebral artery; E11.42 Type 2 diabetes mellitus with diabetic polyneuropathy; I12.9 Hypertensive chronic kidney disease with stage 1 through stage 4 chronic kidney disease, or unspecified chronic kidney disease; N18.9 Chronic kidney disease, unspecified
CPT/HCPCS: 36415; 70450; 70496; 70498; 70551; 71045; 80048; 80053; 80061; 81001; 82164; 82306; 82550; 82553; 82948; 83036; 83519; 83605; 83735; 83880; 83970; 84100; 84484; 85025; 85610; 85730; 87040; 87086; 87186; 87635; 93005; 93306; 93880; 96361; 97139; 99284; G0378; J0360; J0696; J1940; J2430; J3475; J7030; J7040; J7050; Q9967

== ENCOUNTER 2020-02-16 08:54 | Inpatient (IN) | payer MEDICARE, OTHER ==
[2020-02-13 14:56] LABS: BASOPHILS # (AUTO) 0.1 (0.0-0.1); EOSINOPHILS # (AUTO) 0.2 (0.0-0.4); EOSINOPHILS % 2.7 % (0.0-6.0); HEMOGLOBIN 15.5 g/dL (14.0-18.0); LYMPHOCYTES # (AUTO) 2.5 (1.0-3.2); LYMPHOCYTES % 33.1 % (18.0-39.1); MEAN CORPUSCULAR HEMOGLOBIN 29.9 pg (28-32); MEAN CORPUSCULAR VOLUME 90.6 fL (81-99); MONOCYTES # (AUTO) 0.8 (0.2-0.8); MONOCYTES % 10.8 % (4.4-11.3); PLATELET COUNT 225 x10e3/uL (140-360); RED BLOOD COUNT 5.19 x10e6/uL (4.3-5.7)
[2020-02-13 15:24] LABS: ANION GAP 12.4 mmol/L (8-16); BLOOD UREA NITROGEN 15 mg/dL (7-26); BUN/CREATININE RATIO 18 (6-25); CALCIUM 11.9 mg/dL (8.4-10.2); CARBON DIOXIDE 22 mmol/L (22-29); CHLORIDE 110 mmol/L (98-107); CREATININE, SERUM 0.82 mg/dL (0.72-1.25); EST GLOMERULAR FILTRATION RATE > 60 ML/MIN (60-); GLUCOSE 72 mg/dL (74-118); POTASSIUM 4.4 mmol/L (3.5-5.1); SODIUM 140 mmol/L (136-145)
--- NOTE | 2020-02-14 08:35 | Diagnostic Imaging Report ---
Chest, 2 views, 02/13/2020. History: Preop, neck surgery. Comparison: None available. Findings: The cardiomediastinal silhouette and pulmonary vasculature are within normal limits. The lungs are clear without evidence of consolidation or pleural effusion. There are no acute osseous or soft tissue abnormalities. Impression: No acute cardiopulmonary abnormality. Signed by: Nile Hernandez on 02/14/2020 8:32 AM
[2020-02-16] VITALS (9 sets, daily range): BP systolic 126–159; BP diastolic 64–82
[~2020-02-16] VITALS: Ht 165.1 cm; Wt 90.5 kg
[~2020-02-16 08:54] MED LIST: BENICAR40 MG PO; CEFDINIR300 MG PO; CEFUROXIME250 MG PO; DOXAZOSIN MESYLA8 MG PO; FINASTERIDE5 MG PO; HEPARIN SOD/SOD CHLORIDE 1,000 ML ONE; LIPITOR20 MG PO; METFORMIN HCL500 MG PO; NAPROSYN500 MG PO; PAROXETINE HCL20 MG PO
[2020-02-16] MEDS ORDERED: PROTAMINE SULFATE 10 MG/ML 5 ML VIAL ONE (09:18)
[2020-02-16] MEDS ORDERED: BACITRACIN 50,000 UNIT VIAL ONE (09:18)
[2020-02-16] MEDS ORDERED: HEPARIN SOD (PORCINE) 1000 UNIT/ML 30ML ONE (09:18)
[2020-02-16] MEDS ORDERED: THROMBIN FOR SOLN 5,000 UNIT VIAL ONE (09:18)
[2020-02-16] MEDS ORDERED: SODIUM CHLORIDE 0.9% 500ML 500 ML ONE (09:18)
[2020-02-16] MEDS ORDERED: ACETAMINOPHEN 1000 MG/100 ML 100 ML IV ONE (09:21)
[2020-02-16] MEDS ORDERED: VANCOMYCIN 1GM/NS 250 ML 250 ML ONE (09:22)
[2020-02-16] MEDS ORDERED: LIDOCAINE HCL (LTA) 4 ML SOLN ONE (09:22)
[2020-02-16] MEDS ORDERED: BUPIVACAINE HCL 0.5% INJ 30 ML VIAL INJ ONE (10:37)
[2020-02-16] MEDS ORDERED: LIDOCAINE HCL 1% 2 ML AMP ONE (10:37)
[2020-02-16 13:33] LABS: BASOPHILS % 0.5 % (0.0-1.0); EOSINOPHILS % 0.5 % (0.0-6.0); HEMATOCRIT 44.3 % (38.2-49.6); HEMOGLOBIN 14.5 g/dL (14.0-18.0); LYMPHOCYTES # (AUTO) 0.7 (1.0-3.2); LYMPHOCYTES % 8.3 % (18.0-39.1); MEAN CORPUSCULAR HEMOGLOBIN 30.1 pg (28-32); MEAN CORPUSCULAR HGB CONC 32.7 g/dL (31-35); MEAN CORPUSCULAR VOLUME 91.9 fL (81-99); MONOCYTES # (AUTO) 0.3 (0.2-0.8); MONOCYTES % 3.3 % (4.4-11.3); NEUTROPHILS # (AUTO) 7.1 (2.1-6.9); NEUTROPHILS % 86.9 % (38.7-80.0); PLATELET COUNT 199 x10e3/uL (140-360); RED BLOOD COUNT 4.82 x10e6/uL (4.3-5.7)
--- NOTE | 2020-02-16 13:44 | Diagnostic Imaging Report ---
EXAMINATION: CHEST SINGLE (PORTABLE) INDICATION: Postoperative COMPARISON: Chest radiograph 02/13/2020 FINDINGS: LINES/TUBES:EKG leads overlie the chest. LUNGS:The lungs are well-inflated. No focal consolidation or pulmonary edema. PLEURA:No pleural effusion or pneumothorax. MEDIASTINUM:The cardiomediastinal silhouette appears normal in size and shape. BONES/SOFT TISSUES:No acute osseous injury. ABDOMEN:No free air under the diaphragm. IMPRESSION: No thorax, focal pneumonia or pulmonary edema. Signed by: Chin Blanc MD on 02/16/2020 1:41 PM
[2020-02-16 13:55] LABS: ANION GAP 12.9 mmol/L (8-16); BLOOD UREA NITROGEN 16 mg/dL (7-26); BUN/CREATININE RATIO 19 (6-25); CALCIUM 10.1 mg/dL (8.4-10.2); CARBON DIOXIDE 19 mmol/L (22-29); CHLORIDE 112 mmol/L (98-107); CREATININE, SERUM 0.86 mg/dL (0.72-1.25); EST GLOMERULAR FILTRATION RATE > 60 ML/MIN (60-); GLUCOSE 142 mg/dL (74-118); POTASSIUM 4.9 mmol/L (3.5-5.1); SODIUM 139 mmol/L (136-145)
[2020-02-16] MEDS ORDERED: ONDANSETRON HCL INJ 2MG/ML 2ML 2 MG/ML VIAL ONE (13:55)
[2020-02-16] MEDS ORDERED: DEXAMETHASONE SOD PHOS INJ 4 MG/ML VIAL ONE (13:55)
[2020-02-16] MEDS ORDERED: LIDOCAINE HCL 2% JELLY 5 ML TUBE ONE (13:55)
[2020-02-16] MEDS ORDERED: LIDOCAINE HCL 2% LOCAL INJ 5 ML SDV VIAL INJ ONE (13:55)
[2020-02-16] MEDS ORDERED: EPHEDRINE SULFATE INJ 50 MG/ML VIAL ONE (13:55)
[2020-02-16] MEDS ORDERED: SEVOFLURANE INHAL SOLN 250 ML PEN BTL ONE (13:55)
[2020-02-16] MEDS ORDERED: PROPOFOL IV EMULSION 10 MG/ML 20 ML VIAL ONE (13:55)
[2020-02-16] MEDS ORDERED: ROCURONIUM BROMIDE 10 MG/ML 5ML VIAL IV ONE (13:55)
[2020-02-16] MEDS ORDERED: ETOMIDATE 2 MG/ML 10 ML INJ IV ONE (13:55)
--- OUTSIDE RECORDS SUMMARY | 2020-02-16 14:19 | XMS REPORT | Continuity of Care Document ---
Author Author [facility] t Organization [facility] Address [address] [place] [address] Phone Unavailable Care Team Providers Care Ob/Gyn Name Role Phone MD Keily KENT PCP ANISA SCHMITZ Attphys Unavailable TALA HARVEY Attphys Unavailable Torsten BAKER Admphys Unavailable TALA HARVEY Admphys Unavailable Problems Condition Name Condition Details Condition Category Status Onset Date Resolution Date Last Treatment Date Treating Clinician Comments Source Urinary tract infection Problem Active [facility] Dehydration Problem Active [facility] Renal insufficiency Problem Active [facility] Allergies, Adverse Reactions, Alerts Allergy Name Allergy Type Status Severity Reaction(s) Onset Date Inacti ve Date Treating Clinician Comments Source Penicillin Allergy to substance Active 2020-01-28 00:00:00 [facility] Social History Social Habit Start Date Stop Date Quantity Comments Source Sex Assigned At 1950 00:00:00 1950 00:00:00 Male [facility] Medications Ordered Medication Name Filled Medication Name Start Date Stop Da te Current Medication? Ordering Clinician Indication Dosage Frequency Signature (SIG) Comments Components Source Cefuroxime Axetil (Cefuroxime) 250 Mg TABLET Cefuroxim e Axetil (Cefuroxime) 250 Mg TABLET 2020-02-02 19:35:00 Yes 500 Every 12 Hours [facility] Atorvastatin Calcium (Lipitor) 20 Mg TABLET Atorvastat in Calcium (Lipitor) 20 Mg TABLET 2020-01-30 09:38:00 Yes 40 Bedtime [facility] Doxazosin Mesylate Doxazosin Mesylate Yes 1 Da orly [facility] Finasteride Finasteride Yes 5 Daily [facility] Metformin Hcl Metformin Hcl Yes 500 Twice A Day [facility] Paroxetine Hcl Paroxetine Hcl Yes 10 Daily [facility] Olmesartan Medoxomil (Benicar) 40 Mg TABLET Olmesartan Medoxomil (Benicar) 40 Mg TABLET 2020-01-30 00:00:00 No 1 Daily [facility] Vital Signs Vital Name Observation Time Observation Value Comments Source Body Temperature 2020-02-02 15:25:00 98.4 [degF] [facility] BMI (Body Mass Index) 2020-01-28 19:15:00 30.0 kg/m2 [facility] Weight 2020-01-28 15:51:00 180 [lb_av] [facility] Procedures Procedure Date / Time Performed Performing Clinician Indy giorgio Magnetic resonance imaging of brain without contrast 2020-01-31 00:00:00 [facility] Computed tomography angiography of brain 2020-01-30 00:00:00 [facility] CT angiography of neck 2020-01-30 00:00:00 [facility] Computed tomography of brain without radiopaque contrast 2020-01 00:00:00 [facility] Plan of Care Planned Activity Planned Date Details Comments Source Instructions Dehydration - Adult [facility] Instructions Dizziness [facility] Instructions Urinary Tract Infection - Pediatric [facility] Encounters Start Date/Time End Date/Time Encounter Type Admission Type Attendi [facility] Facility Care Department Encounter ID Source 2020-01-30 12:42:00 2020-02-02 20:30:00 Discharged Inpatient 1 TALA HARVEY [facility] [id number] [facility] Results Test Description Test Time Test Comments Results Result Comments Source CHEST SINGLE (PORTABLE) 2020-02-16 13:40:00 [facility] [address] [place], [place] [address] Patient Name: DG NDIAYE MR #: [id number] : 1950 Age/Sex: 69/M Req #: [id number] Adm Physician: Ordered by: ANISA SCHMITZ MD Report #: [id number] Location: OR Room/Bed: Procedure: DX/CHEST SINGLE (PORTABLE) Exam Date: 02/16/20 Exam Time: 1310 REPORT STATUS: Signed EXAMINATION: CHEST SINGLE (PORTABLE) INDICATION: Postoperative COMPARISON: Chest radiograph 02/13/2020 FINDINGS: LINES/TUBES:EKG leads overlie the chest. LUNGS:The lungs are well-inflated. No focal consolidation or pulmonary edema. PLEURA:No pleural effusion or pneumothorax. MEDIASTINUM:The cardiomediastinal silhouette appears normal in size and shape. BONES/SOFT TISSUES:No acute osseous injury. ABDOMEN:No free air under the diaphragm. IMPRESSION: No thorax, focal pneumonia or pulmonary edema. Signed by: Delphine Osorio MD on 02/16/2020 1:41 PM Dictated By: DELPHINE OSORIO MD 1341 Transcribed By: MARK on 02/16/20 1341 COPY TO: ANISA SCHMITZ MD CHEST 2 VIEWS 2020-02-14 08:31:[address] [address] Patient Name: DG NDIAYE MR #: [id number] : 1950 Age/Sex: 69/M Req #: [id number] Adm Physician: Ordered by: ANISA SCHMITZ MD Report #: [id number] Location: OR Room/Bed: Procedure: [id number] DX/CHEST 2 VIEWS Exam Date: 02/13/20 Exam Time: 1435 REPORT STATUS: Signed Chest, 2 views, 02/13/2020. History: Preop, neck surgery. Comparison: None available. Findings: The cardiomediastinal silhouette and pulmonary vasculature are within normal limits. The lungs are clear without evidence of consolidation or pleural effus ion. There are no acute osseous or soft tissue abnormalities. Impression: No acute cardiopulmonary abnormality. Signed by: Nile Hernandez on 02/14/2020 8:32 AM Dictated By: NILE HERNANDEZ MD 1 Transcribed By: MARK on 02/14/20831 COPY TO: ANISA SCHMITZ MD Capillary blood glucose measurement by glucometer (mas s/volume) 2020-02-02 20:08:00 Test Item Bedside Glucose (test code = 08070-7) 123 70-120 Meter ID: [id number] [facility] ionized calcium measurement (mass/volume)2020-02-02 05:25:00* Test Item Value Reference Range Interpretation Comments Ionized Calcium (test code = 09330-6) 1.5 1.09-1.30 [facility] leukocytes automated count (number/volume)2020-02-01 05:15:00* Test Item Value Reference Range Interpretation Comments White Blood Count (test code = 6690-2) 4.88 4.8-10.8 [facility] erythrocytes automated count (number/volume)2020-02-01 05:15:00* Test Item Value Reference Range Interpretation Comments Red Blood Count (test code = 789-8) 4.64 4.3-5.7 [facility]ne[facility] hemoglobin measurement (moles/volume)2020-02-01 05:15:00* Test Item Value Reference Range Interpretation Comments Hemoglobin (test code = 37347-5) 14.5 14.0-18.0 [facility]neAutomated blood hematocrit (volume fraction)2020-02-01 05:15:00* Test Item Value Reference Range Interpretation Comments Hematocrit (test code = 4544-3) 44.0 38.2-49.6 [facility]neAutomated erythrocyte mean corpuscular rrhkfx1619-54-16 05:15:00* Test Item Value Reference Range Interpretation Comments Mean Corpuscular Volume (test code = 787-2) 94.8 81-99 [facility]neAutomated erythrocyte mean corpuscular hemoglobin (mass per erythrocyte)2020-02-01 05:15:00* Test Item Value Reference Range Interpretation Comments Mean Corpuscular Hemoglobin (test code = 785-6) 31.3 28-32 [facility]neAutomated erythrocyte mean corpuscular hemoglobin concentration measurement (mass/volume)2020-02-01 05:15:00* Test Item Value Reference Range Interpretation Comments Mean Corpuscular Hemoglobin Concent (test code = 786-4) 33.0 31-35 [facility] CleburneRDW FuqZw-Snk2633-50-27 05:15:00* Test Item Value Reference Range Interpretation Comments Red Cell Distribution Width (test code = 88332-1) 13.4 11.7 -14.4 [facility]neAutomated blood platelet count (count/volume)2020-02-01 05:15:00* Test Item Value Reference Range Interpretation Comments Platelet Count (test code = 777-3) 175 140-360 [facility]neAutecu health medical centered blood segmented neutrophil count as percentage of total lxewzoydkn6704-89-70 05:15:00* Test Item Value Reference Range Interpretation Comments Neutrophils (%) (Auto) (test code = 44918-8) 60.5 38.7-80.0 [facility]neAutomated blood lymphocyte count as percentage ot total rzvlowvxjd2228-39-41 05:15:00* Test Item Value Reference Range Interpretation Comments Lymphocytes (%) (Auto) (test code = 736-9) 25.4 18.0-39.1 [facility] CleburneAutomated blood monocyte count as percentage of total kavarrgivu3806-73-75 05:15:00* Test Item Value Reference Range Interpretation Comments Monocytes (%) (Auto) (test code = 5905-5) 8.4 4.4-11.3 [facility]neAutomated blood eosinophil count as percentage of total gbojdinihc9238-63-70 05:15:00* Test Item Value Reference Range Interpretation Comments Eosinophils (%) (Auto) (test code = 713-8) 4.5 0.0-6.0 [facility]neAutomated blood basophil count as percentage of total mvmcouwvgo5763-50-17 05:15:00* Test Item Value Reference Range Interpretation Comments Basophils (%) (Auto) (test code = 706-2) 0.8 0.0-1.0 [facility] Cle[facility]neFluoroscopic procedure less than one hour bqvtcrkf8536-99-16 05:15:00* Test Item Value Reference Range Interpretation Comments IM GRANULOCYTES % (test code = IM GRANULOCYTES %) 0.4 0.0- 1.0 [facility] CleburneAutomated blood neutrophil count 2020-02-01 05:15:00* Test Item Value Reference Range Interpretation Comments Neutrophils # (Auto) (test code = 751-8) 3.0 2.1-6.9 [facility]neBlood lymphocytes count (number/volume) 2020-02-01 05:15:00* Test Item Value Reference Range Interpretation Comments Lymphocytes # (Auto) (test code = 10543-0) 1.2 1.0-3.2 [facility]neBlood monocytes automated count (number/volume)2020-02-01 05:15:00* Test Item Value Reference Range Interpretation Comments Monocytes # (Auto) (test code = 742-7) 0.4 0.2-0.8 [facility] CleburneAutomated blood eosinophil count 2020-02-01 05:15:00* Test Item Value Reference Range Interpretation Comments Eosinophils # (Auto) (test code = 711-2) 0.2 0.0-0.4 [facility] Cle[facility]neAutomated blood basophil count (count/volume)2020-02-01 05:15:00* Test Item Value Reference Range Interpretation Comments Basophils # (Auto) (test code = 704-7) 0.0 0.0-0.1 [facility]neFluoroscopic procedure less than one hour qbeicwep4110-84-53 05:15:00* Test Item Value Reference Range Interpretation Comments Absolute Immature Granulocyte (auto (dinah t code = Absolute Immature Granulocyte (auto) 0.02 0-0.1 [facility] sodium measurement (moles/volume)2020-02-01 05:15:00* Test Item Value Reference Range Interpretation Comments Sodium Level (test code = 2951-2) 137 136-145 [facility] plasma potassium measurement (moles/volume)2020-02-01 05:15:00* Test Item Value Reference Range Interpretation Comments Potassium Level (test code = 2823-3) 4.2 3.5-5.1 [facility] plasma chloride measurement (moles/volume)2020-02-01 05:15:00* Test Item Value Reference Range Interpretation Comments Chloride Level (test code = 2075-0) 112 98-107 [facility] or plasma carbon dioxide, total measurement (moles/volume)2020-02-01 05:15:00* Test Item Value Reference Range Interpretation Comments Carbon Dioxide Level (test code = 2028-9) 21 22-29 [facility] or plasma anion swd1783-50-39 05:15:00* Test Item Value Reference Range Interpretation Comments Anion Gap (test code = 65821-3) 8.2 8-16 [facility] plasma urea nitrogen measurement (mass/volume)2020-02-01 05:15:00* Test Item Value Reference Range Interpretation Comments Blood Urea Nitrogen (test code = 3094-0) 17 7-26 [facility] plasma creatinine measurement (mass/volume)2020-02-01 05:15:00* Test Item Value Reference Range Interpretation Comments Creatinine (test code = 2160-0) 0.81 0.72-1.25 [facility] or plasma urea nitrogen/creatinine mass ltcel6890-85-02 05:15:00* Test Item Value Reference Range Interpretation Comments BUN/Creatinine Ratio (test code = 3097-3) 21 6-25 [facility]neEstimated glomerular filtration rate (GFR) veuoxvnurevfc7995-11-82 05:15:00* Test Item Value Reference Range Interpretation Comments Estimat Glomerular Filtration Rate (test code = 828378649) > 60 >60 Ranges were taken from the National Kidney Disease Education Program and the [facility] Kidney Foundation literature.Reference ranges:60 or greater: Eegikn82-60 ( for 3 consecutive months): Chronic kidney disease 15 or less: Kidney failureTexas [facility] Cle[facility]neGlucose wryftnqvldm8017-76-90 05:15:00* Test Item Value Reference Range Interpretation Comments Glucose Level (test code = PLA2493) 109 74-118 [facility] or plasma calcium measurement (mass/volume)2020-02-01 05:15:00* Test Item Value Reference Range Interpretation Comments Calcium Level (test code = 92184-1) 10.9 8.4-10.2 [facility]nePhosphorus szckynmdtjv0912-37-52 05:15:00 * Test Item Value Reference Range Interpretation Comments Phosphorus Level (test code = VHD5724) 2.2 2.3-4.7 [facility] Hospital[facility] or plasma magnesium measurement (mass/volume)2020-02-01 05:15:00* Test Item Value Reference Range Interpretation Comments Magnesium Level (test code = 89784-7) 1.5 1.3-2.1 [facility]neMRI BRAIN DX5096-60-86 12:45:00 [facility] [address] [place] [address] Patient Name: DG NDIAYE MR #: [id number] : 1950 Age/Sex: 69/M Req #: [id number] Adm Physician: TALA HARVEY MD Ordered by: ESTEBAN BRYAN MD Report #: [id number] [facility]: [facility] Room/Bed: 288-1 Procedure: [id number] MRI/MRI BRAIN W O Exam Date: Exam Time: REPORT STATUS: Signed Examination: MRI BRAIN WO CONTRAST History: Dizziness. Dehydration. Strokelike symptoms. Comparison studies: Hea d CT performed January 28, 2020 Technique: Sagittal T2; axial DWI, FLAIR, GR E or SWI, T1, Coronal FLAIR. Intravenous contrast: None Findings: Sc alp: No abnormal signal. No masses. Bone marrow: Normal in signal intensity. Brain volume: Adequate for age. No volume loss. Ventricles: Normal in si ze and configuration. No hydrocephalus. Extra-axial spaces: No abnorm alities. Parenchyma: There are patchy and punctate areas of T2/FLAIR hype rintensity in the periventricular and subcortical white matter, nonspecific. No masses, hemorrhage, or acute vascular insults. Suprasellar and sellar region: No abnormalities. Craniocervical junction: No abnormalities. The brianne en magnum is patent. No Chiari malformations. Vessels: Normal flow-voids in the arteries and sinuses. Additional findings:None. IMPRESSION: N o acute intracranial abnormalities, specifically, no acute infarct. Chronic microvascular ischemic change. Signed by: Dr. Tata Galvan M.D. on 12:48 PM Dictated By: TATA CONRAD MD 1240 Transcribed By: LETICIA Perea on 01/31/20 1248 COPY TO: ESTEBAN BRYAN MD Serum or plasma angiotensin converting enzyme measurement (enzymatic activity/volume)2020-01-31 05:30:00* Test Item Value Reference Range Interpretation Comments Angiotensin Converting Enzyme (test code = 2742-5) 44 14- 82 Performed at: - [facility] [address] [place], [place] [id number] Forest Scientist: Soumya Gramajo MD, Phone: [phone] [facility]lakeCTA MNSWL0391-94-63 11:58:00 [facility] [address] [address] Patient Name: DG NDIAYE MR #: [id number] : 1950 Age/Sex: 69/M Req #: [id number] Adm Physician: TALA HARVEY MD Ordered by: Mireya Fontana S[employer] CONSULTANT Report #: [id number] Location: MED/SURG3 Room/Bed: [facility] Procedure: [id number] CT/CTA BRAIN Ex am Date: 01/30/20 Exam Time: 1101 REPORT STATUS: Signed CTA NECK, CTA BRAIN HIST ORY: Carotid stenosis COMPARISON: Head CT 01/28/2020 TECHNIQUE: CTA of the head and neck was performed with intravenous iodine based contrast. Co oliva, sagittal, 3-D, and oblique maximum intensity projection reformations we re created. One or more of the following dose reduction techniques were used: Automated exposure control, adjustment of the mA and/or kV according to patie nt size, and/or utilization of iterative reconstruction technique. DISCUSSI ON: If present, any cervical carotid stenosis will be measured as a percentage relative to the [place] artery distal to the stenosis (NASCET). CERVICAL CTA: Right Carotid: Moderate calcified plaque at the right carotid bulb c auses greater than 70% focal stenosis of the proximal right internal carotid a rtery. Left Carotid: Mild calcified plaque at the left carotid bulb does no t cause significant stenosis. Right vertebral artery: The right vertebral artery is occluded from its origin to the upper V2 segment. Underlying mild ca lcified plaques are seen in the occluded right vertebral artery V2 segment. Th ere is reconstitution of the upper V2 segment at the C3 level. Moderate focal stenosis of the reconstituted upper V2 segment is due to additional focal calc ified plaque. Left vertebral artery: Patent, no abnormalities. INTRACRAN IAL CTA: Carotid arteries: Mild bilateral carotid siphon calcified plaqu e is present. Absent right A1 segment is within normal variation. No abnorma lities in the left A1 or bilateral M1 segments. Vertebrobasilar Circulatio n: Right vertebral artery: Patent, no abnormalities. Left vertebral artery : Patent, no abnormalities. Basilar artery: Patent, no abnormalities. Post erior cerebral arteries: Patent, no abnormalities. Normal Variants: ACo m: Patent. PComs: Patent bilaterally with hypoplastic right P1 segment. Vert ebral arteries: Right dominant. The left vertebral artery terminates as the le ft posterior inferior cerebellar artery. Additional findings: There are mil d to moderate degenerative changes throughout the spine. IMPRESSION: 1. 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 The right vertebral artery is reconstituted at the C3 l evel. Please note that the right vertebral artery is dominant. 2. Moderate fo jamar stenosis in the reconstituted right vertebral artery upper V2 segment due to calcified plaque. 3. Greater than 70% focal stenosis in the proximal cervi jamar right internal carotid artery due to calcified plaque. 4. Mild calcifie d plaque at the left carotid bulb does not cause significant stenosis. 5. M ild bilateral carotid siphon calcified plaque without significant stenosis. 6. No other cervical or intracranial CTA abnormalities. Signed by: Dr. Peter Hogue M.D. on 01/30/2020 12:15 PM Dictated By: YESENIA HOGUE MD 1215 Transcribed By: MARK on 01/30/20 1215 COPY TO: MIREYA FONTANA NP CTA NECK 2020-01-30 11:58:[address] [place] [address] Patient Name: DG NDIAYE MR #: [id number] : 1950 Age/Sex: 69/M Req #: [id number] [facility] Physician: TALA HARVEY MD Ordered by: Mireya Fontana SOURCING CONSULTANT Report #: [id number] Location: [facility] Room/Bed: 288-1 Procedure: [id number] CT/CTA NECK Exa m Date: 01/30/20 Exam Time: 1101 REPORT STATUS: Signed CTA NECK, CTA BRAIN HISTO RY: Carotid stenosis COMPARISON: Head CT 01/28/2020 TECHNIQUE: CTA of the head and neck was performed with intravenous iodine based contrast. Cor onal, sagittal, 3-D, and oblique maximum intensity projection reformations wer e created. One or more of the following dose reduction techniques were used: Automated exposure control, adjustment of the mA and/or kV according to patien t size, and/or utilization of iterative reconstruction technique. DISCUSSIO N: If present, any cervical carotid stenosis will be measured as a percentage relative to the [place] artery distal to the stenosis (NASCET). CERVICAL C TA: Right Carotid: Moderate calcified plaque at the right carotid bulb ca uses greater than 70% focal stenosis of the proximal right internal carotid ar faby. Left Carotid: Mild calcified plaque at the left carotid bulb does not cause significant stenosis. Right vertebral artery: The right vertebral a rtery is occluded from its origin to the upper V2 segment. Underlying mild jamar cified plaques are seen in the occluded right vertebral artery V2 segment. The re is reconstitution of the upper V2 segment at the C3 level. Moderate focal s tenosis of the reconstituted upper V2 segment is due to additional focal calci fied plaque. Left vertebral artery: Patent, no abnormalities. INTRACRANI AL CTA: Carotid arteries: Mild bilateral carotid siphon calcified plaque is present. Absent right A1 segment is within normal variation. No abnormal ities in the left A1 or bilateral M1 segments. Vertebrobasilar Circulation : Right vertebral artery: Patent, no abnormalities. Left vertebral artery: Patent, no abnormalities. Basilar artery: Patent, no abnormalities. Poste rior cerebral arteries: Patent, no abnormalities. Normal Variants: ACom : Patent. PComs: Patent bilaterally with hypoplastic right P1 segment. Verte bral arteries: Right dominant. The left vertebral artery terminates as the lef t posterior inferior cerebellar artery. Additional findings: There are mild to moderate degenerative changes throughout the spine. IMPRESSION: 1. 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 The right vertebral artery is reconstituted at the C3 le true. Please note that the right vertebral artery is dominant. 2. Moderate foc al stenosis in the reconstituted right vertebral artery upper V2 segment due t o calcified plaque. 3. Greater than 70% focal stenosis in the proximal cervic al right internal carotid artery due to calcified plaque. 4. Mild calcified plaque at the left carotid bulb does not cause significant stenosis. 5. Mi ld bilateral carotid siphon calcified plaque without significant stenosis. 6 . No other cervical or intracranial CTA abnormalities. Signed by: Dr. Bryn Hogue M.D. on 01/30/2020 12:15 PM Dictated By: YESENIA HOGUE MD 14 Transcribed By: MARK on 01/30/20 1215 COPY TO: MIREYA FONTANA NP Serum or plasma total bilirubin measurement (mass/volume)2020-01-30 05:15:00* Test Item Value Reference Range Interpretation Comments Total Bilirubin (test code = 1975-2) 1.0 0.2-1.2 [facility]neFluoroscopic procedure less than one hour khiikwky8397-47-09 05:15:00* Test Item Value Reference Range Interpretation Comments Aspartate Amino Transf (AST/SGOT) (test code = Aspartate Amino Transf (AST/SGOT)) 23 5-34 [facility] alanine aminotransferase measurement (enzymatic activity/volume)2020-01-30 05:15:00* Test Item Value Reference Range Interpretation Comments Alanine Aminotransferase (ALT/SGPT) (test code = 1742-6) 34 0-55 [facility] protein measurement (mass/volume)2020-01-30 05:15:00* Test Item Value Reference Range Interpretation Comments Total Protein (test code = 2885-2) 5.9 6.5-8.1 [facility] albumin measurement (mass/volume)2020-01-30 05:15:00* Test Item Value Reference Range Interpretation Comments Albumin (test code = 1751-7) 3.4 3.5-5.0 [facility]nePlasma globulin measurement (mass/volume) 2020-01-30 05:15:00* Test Item Value Reference Range Interpretation Comments Globulin (test code = 67299-6) 2.5 2.3-3.5 [facility] albumin/globulin mass [id number] 05:15:00* Test Item Value Reference Range Interpretation Comments Albumin/Globulin Ratio (test code = 1759-0) 1.4 0.8-2.0 [facility] plasma alkaline phosphatase measurement (enzymatic activity/volume)2020-01-30 05:15:00* Test Item Value Reference Range Interpretation Comments Alkaline Phosphatase (test code = 6768-6) 104 40-150 [facility] plasma creatine kinase measurement (enzymatic activity/volume)2020-01-29 13:56:00* Test Item Value Reference Range Interpretation Comments Creatine Kinase (test code = 2157-6) 149 30-200 [facility] plasma creatine kinase MB measurement (mass/volume)2020-01-29 13:56:00* Test Item Value Reference Range Interpretation Comments Creatine Kinase MB (test code = 22583-4) 6.50 0-5.0 [facility] by highly sensitive enzyme cbhriaacgep3748-38-55 13:56:00* Test Item Value Reference Range Interpretation Comments Troponin I (test code = 81524-2) 0.048 0-0.300 [facility]neFluoroscopic procedure less than one hour saobqesc8977-79-79 05:53:00* Test Item Value Reference Range Interpretation Comments Hemoglobin A1c Percent (test code = Hemoglobin A1c Percent) 6.2 4.0-7.0 [facility] triglyceride measurement (mass/volume)2020-01-29 05:53:00* Test Item Value Reference Range Interpretation Comments Triglycerides Level (test code = 2571-8) 127 0-149 [facility] plasma cholesterol measurement (mass/volume)2020-01-29 05:53:00* Test Item Value Reference Range Interpretation Comments Cholesterol Level (test code = 2093-3) 177 0-199 Less than 200 mg/dL Low Nmvp849 - 239 mg/dL Borderline Czil818 m g/dl and greater High Risk [facility] cholesterol in LDL measurement (mass/volume) 2020-01-29 05:53:00* Test Item Value Reference Range Interpretation Comments LDL Cholesterol (test code = 2089-1) 108 60-130 [facility] cholesterol in HDL measurement (mass/volume)2020-01-29 05:53:00* Test Item Value Reference Range Interpretation Comments HDL Cholesterol (test code = 2085-9) 44 40-60 [facility] plasma total cholesterol/cholesterol in HDL mass dilro8878-81-26 05:53:00* Test Item Value Reference Range Interpretation Comments Cholesterol/HDL Ratio (test code = 9830-1) 4.0 3.9-4.7 [facility] plasma intact pararthyroid hormone measurement (mass/volume)2020-01-29 05:53:00* Test Item Value Reference Range Interpretation Comments Parathyroid Hormone (test code = 2731-8) 30 15-65 [facility] plasma calcium measurement (mass/volume)2020-01-29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
[2020-02-16] MEDS: HYDROCODONE/APAP 7.5MG-325MG 1 EA TAB PO PRN (15:41)
[2020-02-16] MEDS: METFORMIN HCL 500 MG TAB PO SCH (17:00)
--- NOTE | 2020-02-16 18:54 | Operative Report ---
DATE OF PROCEDURE: 02/16/2020 SURGEON: Jose A Alvarado MD PREOPERATIVE DIAGNOSES: Right carotid stenosis, hypercalcemia, hypertension. POSTOPERATIVE DIAGNOSES: Right carotid stenosis, hypercalcemia, hypertension. OPERATIVE PROCEDURES: 1. Right carotid endarterectomy with EEG monitoring and prosthetic patch repair. 2. 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 ANESTHESIA: General endotracheal with EEG monitoring. INDICATIONS: This is a 69-year-old man, who was admitted with dizziness and unsteady gait. Evaluation revealed a 70% to 80% right carotid stenosis as well as hypercalcemia. The hypercalcemia as indicated and right carotid endarterectomy has been recommended. Prior to surgery, I described the operation was in the holding area by himself because of COVID-19 restrictions. I previously discussed yesterday with him. I described the surgery again. I told him that the risks of surgery would include , bleeding, infection, heart attack, stroke, pneumonia, prolonged ICU stay, mechanical ventilation, tracheostomy, amputation, stroke, etc. I discussed the risk of stroke in detail. I told him that the risk of stroke during the operation that might be major or lethal was on the order of 3% to 4%. I told him that without surgery, the risk of stroke would be approximately 4% to 5% for years from his neurological problems. I told him that the only reason to get the surgery was to lessen the risk of stroke over the long- term and that the operation would not be expected to improve his neurologic function. The patient stated that he understood, had no further questions, and wanted to proceed. Findingd: Tight right carotid stenosis of approximately 80-90%. This was a lesion extending towards the base of the skull. Endarterectomy was uneventful. EEG was unchanged throughout. The patient emerged from anesthesia and neurologically intact. DESCRIPTION OF PROCEDURE: The patient was taken to the operative room on February 16, 2020 and placed supine on the operating table. General endotracheal anesthesia was smoothly induced. EEG monitoring had been established. The right anterior neck and chest were sterilely prepped and draped in the usual fashion using alcohol prewash and Betadine scrub and solution. Time-out was performed appropriately. Incision was made anterior to the sternocleidomastoid. Dissection was carried down to the carotid sheath. The common carotid, external and internal carotid arteries were isolated and controlled after the hypoglossal nerve had been fully identified. The distal internal carotid artery at the base of the skull had fairly extensive plaquing. The strap muscle was divided. The internal carotid artery was isolated and controlled at the base of the skull. At this level, there was no plaque. The patient was systemically heparinized. The internal carotid artery was occluded followed by common and external carotid arteries. Longitudinal arteriotomy was then created starting on the distal common carotid artery and extending onto the internal carotid artery to beyond the area of plaque involvement towards the skull base, for approximately 3 to 4 cm. Endarterectomy was performed uneventfully. A nicely feathered plaque was removed from the distal internal carotid artery. Common carotid artery plaque was divided at an area of minimal involvement. External carotid artery endarterectomy was also performed. All particulate matter was meticulously removed. A 7-0 tacking sutures were used proximally and distally. A prosthetic patch was then sewn into place using 2 running 7-0 Prolene. Prior to completing the anastomotic repair, the external carotid artery was opened and the area of repair was de-aired. The patch repair was then completed. The common carotid was opened into the external carotid artery for 12 beats and then the internal carotid artery was opened as well. EEG remained unchanged. A half dose of protamine was administered. There was excellent hemostasis. The wounds were closed in layers using absorbable suture. Sterile dressings were applied. Because of the more extensive dissection and division of the strap muscles that was required to control the internal carotid artery distaly towards the skull base,this was a more complex procedure that took 30 -40% longer to complete than the typical case. Sponge, instrument, and needle counts were correct prior to and after wound closure. Independent search of the operative field by both operating surgeons and nurse revealed no retained instruments or sponges. The patient tolerated the procedure well, was extubated in the operating room, was neurologically intact, and was taken to the recovery area in stable condition. MD LASHAY Soto/MODL /[id number] REE
[2020-02-16] MEDS: MORPHINE SULFATE 2 MG/ML SYR 1ML IV PRN (20:43)
[2020-02-16] MEDS: ATORVASTATIN 40 MG TAB PO SCH (20:43)
[2020-02-16] MEDS ORDERED: ATORVASTATIN 20 MG TAB PO SCH (21:00)
[2020-02-16] MEDS ORDERED: DIPHENHYDRAMINE HCL 25 MG CAP PO PRN (21:00)
[2020-02-16] MEDS ORDERED: ACETAMINOPHEN 325 MG TAB PO PRN (22:30)
[2020-02-17] VITALS (17 sets, daily range): BP systolic 123–198; BP diastolic 61–98
[2020-02-17] MEDS: HYDROCODONE/APAP 7.5MG-325MG 1 EA TAB PO PRN ×4 (00:25→17:57)
--- NOTE | 2020-02-17 02:55 | Consultation ---
DATE OF CONSULTATION: 02/16/2020 Internal Medicine Consultation Note REASON FOR CONSULTATION: Internal medicine management. CHIEF COMPLAINT: Status post right carotid endarterectomy. HISTORY OF PRESENT ILLNESS: This is a 69-year-old male with history of hypertension, hyperlipidemia, type 2 diabetes, who was recently diagnosed with a right internal carotid greater than 70% stenosis, needing further evaluation and management. The patient was discharged, then brought in as an elective procedure, underwent status post right carotid endarterectomy, performed by CV surgery, Dr. Alvarado. The patient was evaluated postoperatively. He was doing well, alert, awake, and oriented x3. He was doing well with no complaints. He was in the ICU for close observation and monitoring. The patient denies any chest pain, palpitation, nausea, or vomiting. No complaints of any other issues at this time. Discussed plan of care with nursing staff. PHYSICAL EXAMINATION: VITAL SIGNS: Temperature is 97.5, respiratory rate is 20, blood pressure 126/64, and pulse ox 97% on room air. GENERAL: Not in acute distress. Alert and oriented x3. Cooperative on examination. HEENT: Head; normocephalic, atraumatic. Eyes; pupils are equal, round, and reactive to light bilaterally. Extraocular movements intact bilaterally. Throat; no evidence of erythema or exudates in the posterior pharynx. Has poor dentition. NECK: Supple. Good range of motion. PULMONARY: Clear to auscultation bilaterally. No wheezing, no rales, no rhonchi, no crackles appreciated. CARDIOVASCULAR: Positive S1 and S2. No murmurs, rubs, or gallops appreciated. ABDOMEN: Soft, nondistended, and nontender to palpation. Bowel sounds present. MUSCULOSKELETAL: Strength is 5/5 throughout. No evidence of any muscle deficits on examination. No weakness appreciated. NEUROLOGIC: Cranial nerve II through XII grossly intact. No evidence of any neurological deficits on exam. SKIN: Intact. Warm to touch. Good cap refill. PSYCHIATRIC: Normal affect and mood. EXTREMITIES: No edema. Good range of motion throughout. LABORATORY DATA: Show white count 8.1, hemoglobin 14, hematocrit is 44, platelets of 199. Chemistry; sodium 139, potassium 4.9, chloride 112, bicarb 19, anion gap of 12, BUN 16, creatinine is 0.86, glucose is 142, calcium is 10. Point of care glucose is 130. SEROLOGIES: Coronavirus PCR nondetected. IMAGING STUDIES: Chest x-ray, no thoracic, focal pneumonia, or pulmonary edema. IMPRESSION: 1. Status post right carotid endarterectomy. 2. Hypertension. 3. Type 2 diabetes. 4. Morbidly obese. PLAN: At this time, the patient is doing very well. He was evaluated in the ICU. Continue with postop care pain control. PT/OT evaluation. Resume home medications. Insulin sliding scale. Endocrinology consulted. CV Surgery is following as well. Discussed plan of care with nursing staff. MD LUIS Santacruz/MODL /[id number]
[2020-02-17] MEDS: MORPHINE SULFATE 2 MG/ML SYR 1ML IV PRN (03:35)
[2020-02-17 06:07] LABS: BASOPHILS # (AUTO) 0.1 (0.0-0.1); BASOPHILS % 0.5 % (0.0-1.0); EOSINOPHILS % 0.2 % (0.0-6.0); HEMATOCRIT 40.7 % (38.2-49.6); HEMOGLOBIN 13.7 g/dL (14.0-18.0); LYMPHOCYTES # (AUTO) 1.4 (1.0-3.2); LYMPHOCYTES % 13.6 % (18.0-39.1); MEAN CORPUSCULAR HEMOGLOBIN 31.5 pg (28-32); MEAN CORPUSCULAR HGB CONC 33.7 g/dL (31-35); MEAN CORPUSCULAR VOLUME 93.6 fL (81-99); MONOCYTES # (AUTO) 1.1 (0.2-0.8); MONOCYTES % 10.2 % (4.4-11.3); NEUTROPHILS # (AUTO) 7.9 (2.1-6.9); NEUTROPHILS % 75.1 % (38.7-80.0); PLATELET COUNT 202 x10e3/uL (140-360); RED BLOOD COUNT 4.35 x10e6/uL (4.3-5.7); RED CELL DISTRIBUTION WIDTH 12.9 % (11.7-14.4)
[2020-02-17 06:36] LABS: ANION GAP 12.5 mmol/L (8-16); BLOOD UREA NITROGEN 14 mg/dL (7-26); BUN/CREATININE RATIO 18 (6-25); CALCIUM 10.5 mg/dL (8.4-10.2); CARBON DIOXIDE 18 mmol/L (22-29); CHLORIDE 110 mmol/L (98-107); CREATININE, SERUM 0.76 mg/dL (0.72-1.25); EST GLOMERULAR FILTRATION RATE > 60 ML/MIN (60-); GLUCOSE 122 mg/dL (74-118); POTASSIUM 4.5 mmol/L (3.5-5.1); SODIUM 136 mmol/L (136-145)
[2020-02-17 06:56] LABS: MAGNESIUM 1.6 MG/DL (1.3-2.1); PHOSPHORUS 1.9 MG/DL (2.3-4.7)
[2020-02-17] MEDS: FINASTERIDE 5 MG TAB PO SCH (08:40)
[2020-02-17] MEDS: DOXAZOSIN MESYLATE 2 MG TAB PO SCH (08:40)
[2020-02-17] MEDS: METFORMIN HCL 500 MG TAB PO SCH ×2 (08:40→16:20)
[2020-02-17] MEDS: PAROXETINE HCL 20 MG TAB PO SCH (08:40)
[2020-02-17] MEDS ORDERED: DOXAZOSIN MESYLATE PO SCH (09:00)
--- NOTE | 2020-02-17 15:04 | NUR ---
Patient transferred from ICU, Stable, dressing on the right neck intact, assisted him to bed, at bed side
--- NOTE | 2020-02-17 15:15 | NUR ---
patient alert and oriented. room air. ambulated to med surg 1 adan and back to room independently. room air. vitals remained stable. pt sat in chair for 2 hours after ambulation. pain controlled with norco and ice pack to site of right neck. mild swelling to right neck area noted. instructed patient to keep ice pack to incision site to decrease swelling and pain. pt verbalized understanding,. states pain is better
--- NOTE | 2020-02-17 15:21 | NUR ---
Notified Ionized Ca level to Dr Couch's office, talked to Mrs ORTIZ
[2020-02-17] MEDS: FUROSEMIDE INJ 10 MG/ML 2 ML VIAL IV SCH (15:56)
[2020-02-17] MEDS: SODIUM CHLORIDE 0.9% 1000ML 1,000 ML IV SCH (15:57)
[2020-02-17] MEDS: INSULIN LISPRO 100 UNIT/1 ML 3ML VIAL SQ SCH ×2 (16:20→21:00)
--- NOTE | 2020-02-17 19:03 | NUR ---
RECEIVED BEDSIDE SHIFT REPORT FROM PREVIOUS NURSE. CALL LIGHT WITHIN REACH. PATIENT IN BED.
[2020-02-17] MEDS: ATORVASTATIN 40 MG TAB PO SCH (21:05)
--- NOTE | 2020-02-17 21:20 | Consultation ---
DATE OF CONSULTATION: Endocrine Consultation This is a patient of Dr. Alvarado and Dr. Mohan Oliver. Thank you very much for referring this patient. HISTORY OF PRESENT ILLNESS: This is a 69-year-old gentleman who is very well known to me from his previous hospital admission. The patient was recently admitted in the hospital with hypercalcemia. He was given a dose of Aredia and his calcium levels are better now. The patient also was found to have right carotid stenosis during the last hospital admission. He underwent carotid endarterectomy. Postop, the patient is stable. OTHER MEDICAL PROBLEMS: Include history of diabetes mellitus with complications and status post CVA and hypertension. PHYSICAL EXAMINATION: GENERAL: Today, the patient is alert, awake, little bit apprehensive. He is moderately overweight. VITAL SIGNS: His heart rate is around 78, blood pressure is 140/86 mmHg. HEENT: Essentially unremarkable. Thyroid is palpable. Clinically, he is near euthyroid. CHEST: Bilateral vesicular breathing. No rales. CARDIOVASCULAR: First and second heart sounds. There is no 3rd or 4th heart sound. Ejection systolic murmur sound grade 2/6. EXTREMITIES: The patient has mild pedal edema. LABORATORY DATA: His calcium at the time of admission was 10.5. His blood sugars are in the range of 122 to 130 mg/dL. CLINICAL IMPRESSION: Hypercalcemia, status post right carotid stenosis, status post carotid endarterectomy, diabetes mellitus type 2 with complications, hypertension. PLAN: At this time is to monitor the ionized calcium. We will also check a thyroid profile and keep him on sliding scale insulin for now. Thanks again for referring this patient. I will follow this patient with you. MD LOUISE Hayes/MODL /[id number]
[2020-02-18] VITALS (8 sets, daily range): BP systolic 112–158; BP diastolic 53–75
[2020-02-18] MEDS: HYDROCODONE/APAP 7.5MG-325MG 1 EA TAB PO PRN ×4 (00:03→14:44)
--- NOTE | 2020-02-18 02:01 | Progress Note ---
DATE: 02/17/2020 SUBJECTIVE: The patient is doing much better today postoperatively. He was evaluated early this afternoon. He was ambulating with no issues. LABORATORY DATA: Labs show white count 10, hemoglobin 13, hematocrit 40, platelets of 202. Chemistry, sodium 136, potassium 4.5, chloride 110, bicarb 18, anion gap is 12. BUN is 14, creatinine is 0.76, glucose is 122, calcium is 10.5, phosphorus is 1.9, magnesium 1.6. IMAGING STUDIES: Chest x-ray, no pneumothorax. No focal pneumonia or pulmonary edema. PHYSICAL EXAMINATION: VITAL SIGNS: Temperature is 98.6, pulse 77, respiratory rate 18, blood pressure is 150/68, pulse ox 99% on room air. GENERAL: Not in acute distress. Alert and oriented x3. Cooperative on examination. HEENT: Head; normocephalic, atraumatic. Eyes; pupils are equal, round, and reactive to light bilaterally. Extraocular movements intact bilaterally. Throat; no evidence of erythema or exudates in the posterior pharynx. Has poor dentition. NECK: Supple. Good range of motion. PULMONARY: Clear to auscultation bilaterally. No wheezing, no rales, no rhonchi, no crackles appreciated. CARDIOVASCULAR: Positive S1 and S2. No murmurs, rubs, or gallops appreciated. ABDOMEN: Soft, nondistended, and nontender to palpation. Bowel sounds present. MUSCULOSKELETAL: Strength is 5/5 throughout. No evidence of any muscle deficits on examination. No weakness appreciated. NEUROLOGIC: Cranial nerve 2 through 12 are grossly intact. No evidence of any neurological deficits on exam. SKIN: Intact. Warm to touch. Good cap refill. PSYCHIATRIC: Normal affect and mood. EXTREMITIES: No edema. Good range of motion throughout. IMPRESSION: 1. Status post carotid endarterectomy, postop day #1. 2. Hypertension. 3. Type 2 diabetes. 4. Morbidly obese. PLAN: At this time, the patient is doing very well. He is ambulating with no issues. Labs reviewed and stable. Continue with insulin sliding scale. Endocrinology has been consulted. Blood pressure stable. Once he has been cleared by consultants, the patient can be discharged to home. Fatemeh Watts MD JSD/MODL /[id number]
[2020-02-18] MEDS: SODIUM CHLORIDE 0.9% 1000ML 1,000 ML IV SCH (04:42)
[2020-02-18 05:40] LABS: BASOPHILS # (AUTO) 0.1 (0.0-0.1); BASOPHILS % 0.7 % (0.0-1.0); EOSINOPHILS # (AUTO) 0.2 (0.0-0.4); EOSINOPHILS % 1.6 % (0.0-6.0); HEMATOCRIT 40.7 % (38.2-49.6); HEMOGLOBIN 13.2 g/dL (14.0-18.0); LYMPHOCYTES # (AUTO) 1.5 (1.0-3.2); LYMPHOCYTES % 16.2 % (18.0-39.1); MEAN CORPUSCULAR HEMOGLOBIN 29.9 pg (28-32); MEAN CORPUSCULAR HGB CONC 32.4 g/dL (31-35); MEAN CORPUSCULAR VOLUME 92.3 fL (81-99); NEUTROPHILS # (AUTO) 6.5 (2.1-6.9); PLATELET COUNT 180 x10e3/uL (140-360); RED BLOOD COUNT 4.41 x10e6/uL (4.3-5.7); RED CELL DISTRIBUTION WIDTH 12.8 % (11.7-14.4)
[2020-02-18 06:21] LABS: ANION GAP 12.1 mmol/L (8-16); BLOOD UREA NITROGEN 12 mg/dL (7-26); BUN/CREATININE RATIO 17 (6-25); CALCIUM 10.3 mg/dL (8.4-10.2); CARBON DIOXIDE 21 mmol/L (22-29); CHLORIDE 108 mmol/L (98-107); CREATININE, SERUM 0.71 mg/dL (0.72-1.25); EST GLOMERULAR FILTRATION RATE > 60 ML/MIN (60-); GLUCOSE 126 mg/dL (74-118); POTASSIUM 4.1 mmol/L (3.5-5.1); SODIUM 137 mmol/L (136-145)
--- NOTE | 2020-02-18 07:26 | NUR ---
GAVE BEDSIDE SHIFT REPORT TO ONCOMING NURSE. CALL LIGHT WITHIN REACH. PATIENT IN BED. HOURLY ROUNDING PERFORMED
[2020-02-18] MEDS: INSULIN LISPRO 100 UNIT/1 ML 3ML VIAL SQ SCH ×5 (07:30→21:17)
--- NOTE | 2020-02-18 07:30 | NUR ---
pt resting in bed, dressing to right side of neck intact.
[2020-02-18] MEDS: METFORMIN HCL 500 MG TAB PO SCH ×2 (08:17→16:26)
[2020-02-18] MEDS: FUROSEMIDE INJ 10 MG/ML 2 ML VIAL IV SCH (08:17)
[2020-02-18] MEDS: DOXAZOSIN MESYLATE 2 MG TAB PO SCH (08:17)
[2020-02-18] MEDS: FINASTERIDE 5 MG TAB PO SCH (08:17)
[2020-02-18] MEDS: PAROXETINE HCL 20 MG TAB PO SCH (08:17)
--- NOTE | 2020-02-18 11:55 | NUR ---
called dr claudio to notify of calcium levels. dr claudio states to cont inf and scheduled lasix. no dc orders at time. states he will be by to see pt later
[2020-02-18] MEDS: MORPHINE SULFATE 2 MG/ML SYR 1ML IV PRN ×2 (12:10→18:18)
[2020-02-18] MEDS: ONDANSETRON HCL INJ 2MG/ML 2ML 2 MG/ML VIAL IV PRN ×2 (12:11→18:18)
[2020-02-18] MEDS ORDERED: PAMIDRONATE DISODIUM 30 MG/VIAL IV ONE (15:15)
[2020-02-18] MEDS ORDERED: PAMIDRONATE DISODIUM 30 MG in SODIUM CHLORIDE 0.9% 250ML 250 ML IV ONE (15:30)
--- NOTE | 2020-02-18 16:04 | NUR ---
dr zamorano to see pt. asks for nurse to place a call to dr mariscal to see if he is coming to see pt. call placed to dr mariscal through answering service, spoke to xavi.
--- NOTE | 2020-02-18 16:12 | NUR ---
dr mariscal called back, states he will be making rounds later today
--- NOTE | 2020-02-18 16:38 | Progress Note ---
DATE: 02/18/2020 Medicine Progress Note SUBJECTIVE: The patient doing well today with no complaints. No overnight events. I am not sure when the patient is being discharged by Vascular Surgery. PHYSICAL EXAMINATION: VITAL SIGNS: He is afebrile, normotensive. Respiratory rate is good. GENERAL: Not in acute distress. Alert and oriented x3. Cooperative on examination. PULMONARY: Clear to auscultation bilaterally. No wheezing, no rales, no rhonchi, no crackles appreciated. CARDIOVASCULAR: Positive S1 and S2. No murmurs, rubs, or gallops appreciated. ABDOMEN: Soft, nondistended, and nontender to palpation. Bowel sounds present. MUSCULOSKELETAL: Strength is 5/5 throughout. No evidence of any muscle deficits on examination. No weakness appreciated. SKIN: Intact. Warm to touch. Good cap refill. PSYCHIATRIC: Normal affect and mood. EXTREMITIES: No edema. Good range of motion throughout. LABORATORY DATA: Show CBC stable. Hemoglobin was 13 and white count was 9.2. His chemistries reviewed, stable. MICROBIOLOGY: None. IMAGING STUDIES: None. IMPRESSION: 1. Status post carotid endarterectomy postop day #2. 2. Hypertension. 3. Type 2 diabetes. 4. Morbid obese. PLAN: At this time, the patient is doing extremely well. He could potentially be discharged to home if cleared by CV Surgery. Labs are stable. Blood pressure is stable. Endocrinology consulted for diabetic management. Hopefully discharge home soon. MD LUIS Santacruz/JEROME /[id number]
--- NOTE | 2020-02-18 17:25 | NUR ---
dr mariscal to see pt. ok from his stand point to be dc. call placed to dr claudio. dr claudio told dr zamorano and dr mariscal stated ok to dc from their stand point. dr zamorano states he still wants aredia med cont and a ionized ca in the am and he will decide based on the lab result. dr mariscal notified
--- NOTE | 2020-02-18 17:30 | NUR ---
CV Surgery Wounds clean Neuro exam at baseline No problems swallowing Ambulating Sinus rhythm Ca being checked Good progress OK for DC from surgical point of view Discussed with patient & -Nadine Alvarado MD
--- NOTE | 2020-02-18 19:33 | NUR ---
Recieved pt in bed asleep, easily aroused. Denies acute discomfort at this time. Bed in low position, call lujan and personal items in reach. Will cont to mon
[2020-02-18] MEDS: ATORVASTATIN 40 MG TAB PO SCH (21:00)
[2020-02-19 00:02] VITALS: BP 144/83
[2020-02-19 04:00] VITALS: BP 145/70
[2020-02-19] MEDS: HYDROCODONE/APAP 7.5MG-325MG 1 EA TAB PO PRN (06:29)
--- NOTE | 2020-02-19 06:33 | NUR ---
Pt in bed awake a/o x3. Request pain pill for discomfort to right side of neck. Med per mar. Pt c/o sore throat with swallowing pills, offered apple sauce to assist swallow pill, pt stated it helped some.
[2020-02-19 08:03] VITALS: BP 130/81
[2020-02-19] MEDS: PAROXETINE HCL 20 MG TAB PO SCH (08:26)
[2020-02-19] MEDS: DOXAZOSIN MESYLATE 2 MG TAB PO SCH (08:26)
[2020-02-19] MEDS: FINASTERIDE 5 MG TAB PO SCH (08:26)
[2020-02-19] MEDS: METFORMIN HCL 500 MG TAB PO SCH (08:26)
[2020-02-19 09:19] VITALS: BP 130/81
[2020-02-19] MEDS: INSULIN LISPRO 100 UNIT/1 ML 3ML VIAL SQ SCH (11:30)
[2020-02-19 12:09] VITALS: BP 121/65
[2020-02-19 15:49] LABS: ALANINE AMINOTRANSFERASE 111 IU/L (0-55); ALBUMIN 3.4 g/dL (3.5-5.0); ALKALINE PHOSPHATASE 160 IU/L (40-150); ANION GAP 14.6 mmol/L (8-16); BLOOD UREA NITROGEN 11 mg/dL (7-26); BUN/CREATININE RATIO 15 (6-25); CALCIUM 11.6 mg/dL (8.4-10.2); CARBON DIOXIDE 20 mmol/L (22-29); CHLORIDE 104 mmol/L (98-107); CREATININE, SERUM 0.75 mg/dL (0.72-1.25); EST GLOMERULAR FILTRATION RATE > 60 ML/MIN (60-); GLUCOSE 125 mg/dL (74-118); POTASSIUM 4.6 mmol/L (3.5-5.1); SODIUM 134 mmol/L (136-145)
[2020-02-19] MEDS ORDERED: ASPIR 8181 MG PO (16:03)
--- NOTE | 2020-02-19 16:49 | Discharge Summary ---
FINAL DISCHARGE DIAGNOSES: 1. Status post right carotid endarterectomy-the patient did well post procedurally. 2. Hypertension. 3. Type 2 diabetes. 4. Hypercalcemia. 5. Morbidly obese. CONSULTANTS: 1. Endocrinology. 2. CV Surgery. PHYSICAL EXAMINATION: VITAL SIGNS: Temperature 98.2, pulse 82, respiratory rate is 18, blood pressure 121/65, and pulse ox 96% on room air. LABORATORY DATA: Labs show white count 9.2, hemoglobin 13, hematocrit 40, and platelets of 180. Chemistry; sodium 134, potassium 4.6, chloride 104, bicarb 20, anion gap of 14, BUN is 11, creatinine 0.75, and glucose is 125. Calcium elevated at 11.6, ionized calcium 1.6. Total bilirubin is 1.3, AST 84, ALT is 111, alkaline phosphatase 160, and albumin 3.4. Coronavirus nondetected. MICROBIOLOGY: None. IMAGING STUDIES: Chest x-ray on 02/13/2020 shows no acute cardiopulmonary abnormalities. Chest x-ray 02/16/2020 shows no pneumothorax. No focal pneumonia or pulmonary edema. Negative chest x-ray. HOSPITAL COURSE: A 69-year-old male, came in for an elective right carotid endarterectomy. The patient was admitted post procedurally, underwent status post right carotid endarterectomy performed by Dr. Alvarado, CV surgery. The patient did well post procedurally. He was in the ICU initially. Endocrinology was consulted as well for chronic hypercalcemia. The patient is maintained on pain control. Hemoglobin was stable throughout the hospital course. The patient had no evidence of any deficits. He was doing well, ambulating. Working with PT and OT with no complications. As for his hypercalcemia, I spoke with Endocrinology. The patient can be discharged to home with followup in a week with repeat labs. He did receive some bisphosphonate while here in the hospital stay. As for CV surgery, the patient is cleared for discharge to home with local dressing changes on the right carotid. Follow up in three weeks in his office. On the day of discharge, vital signs were stable, labs reviewed and stable. The patient is seen and evaluated, examined thoroughly on the day of discharge. No other complaints. The patient verbalized understanding and agrees to plan of care to follow up accordingly as an outpatient with primary care physician in 1 week, CV surgeon in three weeks, and Endocrinology in 1 week time. MEDICATIONS: See med reconciliation form. DISPOSITION: Home. CONDITION: Stable. DIET: Heart healthy. In the event of worsening symptoms, the patient was advised to the ED for further evaluation. Discharge summary took greater than 35 minutes. The patient has been cleared for discharge by all consultants. MD LUIS Santacruz/MODZeny /[id number]
== END 2020-02-19 16:25 | disposition home or self-care (01) | DRG 39 ==
LOC: OR 08:54 → PACU V 13:12 → ICU 15:25 → MED/SURG 02-17 14:59
PROVIDERS: ADMIT Surgery; ATTEND Surgery
PROC: 03CH0ZZ Extirpation of Matter from Right Common Carotid Artery, Open Approach (ICD-10-PCS; 2020-02-16)
PROC: 03UM0JZ Supplement Right External Carotid Artery with Synthetic Substitute, Open Approach (ICD-10-PCS; 2020-02-16)
PROC: 03CM0ZZ Extirpation of Matter from Right External Carotid Artery, Open Approach (ICD-10-PCS; 2020-02-16)
PROC: 03CK0ZZ Extirpation of Matter from Right Internal Carotid Artery, Open Approach (ICD-10-PCS; principal; 2020-02-16 09:30)
DX: I65.21 Occlusion and stenosis of right carotid artery (principal); E83.52 Hypercalcemia; I10 Essential (primary) hypertension; E11.9 Type 2 diabetes mellitus without complications; E66.01 Morbid (severe) obesity due to excess calories; Z68.33 Body mass index [BMI] 33.0-33.9, adult
CPT/HCPCS: 36415; 71045; 71046; 80048; 80053; 82948; 83735; 83970; 84100; 85025; 86850; 86900; 86920; 87635; 88304; 88311; 93005; 96360; 97139; C1768; J1100; J1644; J1940; J2001; J2270; J2405; J2430; J2720; J3370; J7030; J7040; J7050

== ENCOUNTER → 2021-05-06 | Outpatient (CLI) | payer MEDICARE ==
[~2021-05-06] MED LIST changes: +ASPIR 8181 MG PO; -HEPARIN SOD/SOD CHLORIDE 1,000 ML ONE
== END ==
LOC: RAD 11:50
PROVIDERS: ATTEND Family Medicine
DX: M54.41 Lumbago with sciatica, right side (principal); M54.6 Pain in thoracic spine; M54.2 Cervicalgia
CPT/HCPCS: 72040; 72072; 72100